=== PATIENT | female | born 1955 | race Caucasian/White ===

== ENCOUNTER 2023-05-28 11:07 | Inpatient (IN) ==
[2023-05-28 11:27] VITALS: BMI 41.1
--- NOTE | 2023-05-28 11:35 | DR.GIBLEED ---
HPI Time Seen Time Seen by Provider: 05/28/23 11:35 Primary Care Physician Primary Care Physician: Russ Cedeño Complaints Chief Complaint Doctors Comments: 68-year-old female presents for evaluation. Developed illness yesterday AM, started with nausea and vomiting. Having discomfort of the lower abdomen, across the, sharp, crampy, waxing and waning. Nothing makes it better, nothing makes worse. Vomiting continued into this a.m. Developed diarrhea last p.m. as well. Having several loose bowel movements. Has had blood with the bowel movements. Denies fever, chills, URI symptoms. Denies cough. Recently finished course of antibiotics for ear infection. Having generalized weakness. Became lightheaded dizzy in triage with standing. Denies chest pain. Called her PCP this a.m., given injection of Zofran, sent here. Having urinary incontinence this a.m. Chief Complaint:: Pt states that yesterday she had a sudden onset of generalized lower abdominal cramping associated with nausea and vomiting. This morning pt started having diarrhea and states that she noticed dark red blood in her stool. Denies any fever. Pt has had generalized weakness and shortness of breath and states that when she stands up she feel like she might pass out. Self Treatment fo Chief Complaint: Pt took Dramamine at home with no improvement of symptoms. Pt was seen at PCP office this morning and was given Zofran 4mg IM and states that this has improved her nausea some. COVID-19 Coronavirus risk:travel/contact w/high risk person: No Has patient experienced Coronavirus symptoms: No Reviewed Nurses Notes Reviewed: Yes Source History Provided: Patient Mode of Arrival Mode of Arrival: Wheelchair Timing Onset of Chief Complaint: 05/27/23 Quality Vomitus: dark blood Stools: in toilet PMH PMH Past Medical History: Yes Past Medical History: Anxiety, Arthritis and Depression Past Medical History Comment: degenerative disc disease of lumbosacral spine Past Surgical History: Yes Surgical History: Hysterectomy and Tonsillectomy Past Surgical History Comment: bilateral TKA Family History History of Family Medical Conditions: Yes Family Medical History: Diabetes Mellitus, Heart Failure and Hypertension Family Medical History Comment: dementia Social History Does patient currently use any type of tobacco product: No Have you used tobacco products in the last 12 months: No Type of Tobacco Use: None Does any household member use tobacco: No Alcohol Use: None Do you use any recreational Drugs:: No Lives With: Spouse Lives Where: Home Travel Risk Coronavirus risk:travel/contact w/high risk person: No Has patient experienced Coronavirus symptoms: No Infectious screening In the last 2 months have you had wt loss of >10#?: NO Have you had fever, night sweats or hemotysis?: No Have you traveled outside the country in the last 6 months?: No Isolation: Standard ROS Review of Systems Constitutional: Malaise and Weakness Eyes: No Symptoms Reported ENTM: No Symptoms Reported Respiratoy: No Symptoms Reported Cardiovascular: No Symptoms Reported Gastrointestinal/Abdominal: See HPI Genitourinary: Other (incontinence) Neurological: Weakness Musculoskeletal: No Symptoms Reported Integumentary: No Symptoms Reported All Other Systems: Reviewed and Negative PE Vital Signs Vitals: Vital Signs Temperature 98.1 F Pulse Rate 97 Pulse Rate 80 Pulse Rate 80 Pulse Rate 89 Pulse Rate 79 Pulse Rate 78 Pulse Rate 78 Pulse Rate 75 Pulse Rate 81 Pulse Rate 78 Pulse Rate 74 Pulse Rate 74 Pulse Rate 77 Pulse Rate 81 Pulse Rate 84 Pulse Rate 81 Pulse Rate 85 Pulse Rate 86 Pulse Rate 95 Respiratory Rate 27 Respiratory Rate 18 Respiratory Rate 18 Respiratory Rate 17 Respiratory Rate 21 Respiratory Rate 21 Respiratory Rate 22 Respiratory Rate 21 Respiratory Rate 23 Respiratory Rate 19 Respiratory Rate 19 Respiratory Rate 20 Respiratory Rate 20 Respiratory Rate 25 Respiratory Rate 22 Respiratory Rate 20 Respiratory Rate 23 Respiratory Rate 20 Blood Pressure 108/63 Blood Pressure 114/57 Blood Pressure 122/63 Blood Pressure 121/63 Blood Pressure 120/59 Blood Pressure 119/63 Blood Pressure 108/59 Blood Pressure 104/60 Blood Pressure 104/60 Blood Pressure 104/60 Blood Pressure 107/63 Blood Pressure 101/61 Blood Pressure 107/68 Blood Pressure 111/60 O2 Sat by Pulse Oximetry 98 O2 Sat by Pulse Oximetry 97 O2 Sat by Pulse Oximetry 95 O2 Sat by Pulse Oximetry 93 O2 Sat by Pulse Oximetry 95 O2 Sat by Pulse Oximetry 95 O2 Sat by Pulse Oximetry 96 O2 Sat by Pulse Oximetry 93 O2 Sat by Pulse Oximetry 94 O2 Sat by Pulse Oximetry 97 O2 Sat by Pulse Oximetry 92 O2 Sat by Pulse Oximetry 92 O2 Sat by Pulse Oximetry 96 O2 Sat by Pulse Oximetry 95 O2 Sat by Pulse Oximetry 96 O2 Sat by Pulse Oximetry 96 O2 Sat by Pulse Oximetry 97 O2 Sat by Pulse Oximetry 96 General General Appearance: Alert and In No Apparent Distress Eyes Eye exam: PERRL and EOMI ENT ENT Exam: Normal Oropharynx and Mucous Membranes Moist Neck Neck Exam: Normal Inspection and Full ROM Respiratory Respiratory Exam: Normal Lung Sounds Bilat; negative Accessory Muscle Use or Respiratory Distress Cardiovascular Cardiovascular Exam: Regular Rate, Normal Rhythm and Normal Heart Sounds Abdominal Exam Abdominal Exam: Normal Bowel Sounds, Soft and Tenderness (LUQ, no guarding or rebound) Extremities Extremities Exam: Normal Inspection and Full ROM; negative Edema Back Back Exam: Normal Inspection; negative (R) CVA Tenderness or (L) CVA Tenderness Neurologic Neurological Exam: Alert, Oriented X3 and CN II-XII Intact; negative Motor Sensory Deficit Skin Skin Exam: Warm and Dry COURSE Treatment Treatment: 60-year-old female with vomiting, abdominal pain since yesterday, now having diarrhea. Has had blood in her stools. Workup initiated. Patient given IV fluids, IV Protonix/IV Zofran. 1422 -labs show elevated white count, 17,900. She has some renal insufficiency, EGFR is 30. Lactic acid elevated at 3.8. CT of the abdomen pelvis without contrast (due to her kidney function & N/V) does not show any obvious acute abnormalities. No evidence for inflammation or bowel obstruction. 1437 -feeling weak, no active nausea or vomiting. Went to the bathroom to urinate a small amount. No bloody BMs here. roll slicing machine tender left side of the abdomen, no guarding or rebound. Recommend admission for further hydration and observation. Will cover the intestines with IV Flagyl/Levaquin. Patient given additional IV fluids, in view of her elevated lactic acid, and possible volume depletion. Differential includes diverticulitis, ischemic bowel, viral gastroenteritis. Her medical provider does not come here, will present patient to Dr. Merchant, covering for the hospital. 1450 - accepts the admission. [facility]OR Labs Reviewed Laboratory Results Reviewed?: Yes 05/28/23 11:58 05/28/23 11:58 Laboratory: WBC 17.9 X10^3/uL (3.6-10.0) H 05/28/23 11:58 RBC 6.06 X10^6/uL (3.5-5.4) H 05/28/23 11:58 Hgb 16.0 g/dL (12.0-16.0) 05/28/23 11:58 Hct 47.9 % (36.0-47.0) H 05/28/23 11:58 MCV 79.0 fL (80.0-100.0) L 05/28/23 11:58 MCH 26.5 pg (27.0-34.0) L 05/28/23 11:58 MCHC 33.5 g/dL (33.0-35.0) 05/28/23 11:58 RDW 15.4 % (11.6-16.5) 05/28/23 11:58 Plt Count 197 X10^3/uL (150.0-450.0) 05/28/23 11:58 Plt Count Comment Adequate (ADEQUATE) 05/28/23 11:58 MPV 8.3 fL (7.4-11.0) 05/28/23 11:58 Neut % (Auto) 92.6 % (42.0-75.0) H 05/28/23 11:58 Lymph % (Auto) 3.7 % (21.0-51.0) L 05/28/23 11:58 [place] % (Auto) 3.1 % (0.0-13.0) 05/28/23 11:58 Eos % (Auto) 0.5 % (0.9-2.9) L 05/28/23 11:58 Baso % (Auto) 0.1 % (0.2-1.0) L 05/28/23 11:58 Neut # (Auto) 16.6 x10^3/uL (2.2-4.8) H 05/28/23 11:58 Lymph # (Auto) 0.7 X10^3/uL (1.3-2.9) L 05/28/23 11:58 [place] # (Auto) 0.6 x10^3/uL (0.3-0.8) 05/28/23 11:58 Eos # (Auto) 0.1 x10^3/uL (0.0-0.2) 05/28/23 11:58 Baso # (Auto) 0.0 X10^3/uL (0.0-0.1) 05/28/23 11:58 Absolute Nucleated RBC 0.2 /100WBC 05/28/23 11:58 Total Counted 100 05/28/23 11:58 Neutrophils % (Manual) 85 % (39-76) H 05/28/23 11:58 Band Neutrophils % 2 % (0-10) 05/28/23 11:58 Lymphocytes % (Manual) 7 % (13-43) L 05/28/23 11:58 Monocytes % (Manual) 6 % (4-9) 05/28/23 11:58 Eosinophils % (Manual) 0 % (0-6) 05/28/23 11:58 Basophils % (Manual) 0 % (0-1) 05/28/23 11:58 Nucleated RBCs 1 05/28/23 11:58 Plt Morphology Comment Normal (NORMAL) 05/28/23 11:58 RBC Morphology Abnormal (NORMAL) A 05/28/23 11:58 Stomatocytes 1+ A 05/28/23 11:58 Sodium 136 mmol/L (136-145) 05/28/23 11:58 Corrected Sodium 137 mmol/L (136-145) 05/28/23 11:58 Potassium 3.4 mmol/L (3.5-5.1) L 05/28/23 11:58 Chloride 98 mmol/L (98-107) 05/28/23 11:58 Carbon Dioxide 25.5 mmol/L (21-32) 05/28/23 11:58 BUN 20 mg/dL (7-18) H 05/28/23 11:58 Creatinine 1.78 mg/dL (0.55-1.02) H 05/28/23 11:58 Est GFR (MDRD) Af Amer 36 (>60) L 05/28/23 11:58 Est GFR (MDRD) Non-Af 30 (>60) L 05/28/23 11:58 Glucose 156 mg/dL (65-99) H 05/28/23 11:58 Lactic Acid 3.8 mmol/L (0.4-2.0) H 05/28/23 11:58 Calcium 8.7 mg/dL (8.5-10.1) 05/28/23 11:58 Corrected Calcium 9.3 mg/dL (8.5-10.1) 05/28/23 11:58 Total Bilirubin 0.80 mg/dL (0.2-1.0) 05/28/23 11:58 AST 18 Units/L (15-37) 05/28/23 11:58 ALT 13 Units/L (12-78) 05/28/23 11:58 Alkaline Phosphatase 122 Units/L (46-116) H 05/28/23 11:58 Total Protein 7.0 g/dL (6.4-8.2) 05/28/23 11:58 Albumin 3.2 g/dL (3.4-5.0) L 05/28/23 11:58 Globulin 3.8 g/dL (2.5-4.5) 05/28/23 11:58 Albumin/Globulin Ratio 0.8 Ratio (1.1-2.1) L 05/28/23 11:58 Lipase 21 Units/L (16-77) 05/28/23 11:58 Specimen Type Random urine 05/28/23 14:19 Urine Color Dark yellow (YELLOW) 05/28/23 14:19 Urine Appearance Slightly hazy (CLEAR) 05/28/23 14:19 Urine pH 5.0 (5.0 - 8.0) 05/28/23 14:19 Ur Specific [place] 1.025 (1.000-1.030) 05/28/23 14:19 Urine Protein 3+ (NEGATIVE) 05/28/23 14:19 Urine Glucose (UA) Negative (NEGATIVE) 05/28/23 14:19 Urine Ketones 1+ (NEGATIVE) 05/28/23 14:19 Urine Blood 4+ (NEGATIVE) 05/28/23 14:19 Urine Nitrite Positive (NEGATIVE) 05/28/23 14:19 Urine Bilirubin 2+ (NEGATIVE) 05/28/23 14:19 Urine Urobilinogen 2+ (NORMAL) 05/28/23 14:19 Ur Leukocyte Esterase 2+ (NEGATIVE) 05/28/23 14:19 Elevated white count, elevated lactic acid XRAY XRAY Interpreted by: Both X-ray Results: EXAM: ABDOMEN/PELVIS W/O CON HISTORY: Abdominal pain, nausea, vomiting, diarrhea TECHNIQUE: Axial noncontrast images with coronal and sagittal reformats. Dose reduction procedures were used with mA/kv adjusted for body size. This examination is limited due to the lack of intravenous and oral contrast. The examination was performed in this manner at the sole direction of the ordering caregiver COMPARISON: None FINDINGS: The lung bases are clear. There is a hiatal hernia present. The liver, spleen, adrenal glands, and pancreas appear within normal limits to the limitations of an unenhanced examination. No opaque stones are present within the gallbladder. Kidneys are unobstructed and without stones. No ureteral calculi are identified. The appendix is not identified with absolute certainty. There are no secondary signs of appendicitis present. Calcific atherosclerotic changes present in the nondilated abdominal aorta. No enlarged intraperitoneal or retroperitoneal lymphadenopathy of significance is identified. There are no findings suggestive of enteritis, colitis, or diverticulitis. Examination of the pelvis demonstrated no evidence for pelvic masses, pelvic fluid, or pelvic lymphadenopathy. No definite bladder abnormality is identified there is severe degenerative joint disease in both hip joints right worse than left. There is some fragmentation of the right femoral head which could indicate avascular necrosis. MRI would be of further diagnostic value if clinically indicated. No lytic or blastic skeletal lesions of significance are identified. IMPRESSION: No definite acute inflammatory process identified within the abdomen or pelvis but only to the limitations of an examination performed without intravenous and without oral contrast. Hiatal hernia Severe degenerative joint disease in both hip joints right worse than left Fragmentation of the right femoral head which could be related to the severe degenerative joint disease however avascular necrosis is not entirely excluded. MRI would be of further diagnostic value if clinically indicated. THIS IS AN ELECTRONICALLY VERIFIED FINAL REPORT 05/28/2023 1:53 PM - Electronically signed by Hussein Brandon MD Opioid Opioid Risk Tool Age (Saul box if 16-45): No History of Preadolescent Sexual Abuse: No Total: 0 Total Score Risk Category: Low Risk Copyright: Jozef CABALLERO predicting aberrant behaviors Discharge Plan Diagnosis Discharge Problem: Gastroenteritis, Volume depletion, Leukocytosis Discharge Plan Patient Disposition: 09 ADMITTED INPATIENT Condition: Stable Prescriptions: No Action fluoxetine 40 mg capsule 40 mg PO QDAY oxybutynin chloride 15 mg tablet extended release 24hr 15 mg PO QDAY cetirizine [Zyrtec] 10 mg Tablet 10 mg PO DAILY Vitamin C 1,000 mg Tablet Extended Release 1,000 mg PO DAILY cyanocobalamin (vitamin B-12) 1,000 mcg Tablet 1,000 mcg PO DAILY phentermine 37.5 mg tablet 37.5 mg PO QDAY omeprazole 40 mg capsule,delayed release(DR/EC) 40 mg PO QDAY diclofenac sodium 75 mg tablet,delayed release (DR/EC) 75 mg PO BID zolpidem 5 mg tablet 5 mg PO QPM PRN progesterone micronized 100 mg capsule 100 mg PO QPM Centrum Silver Ultra Women's Tablet 1 tab PO DAILY furosemide 40 mg Tablet 40 mg PO DAILY alendronate 70 mg Tablet 70 mg PO WEEKLY diclofenac sodium 75 mg Tablet,Delayed Release (Dr/Ec) 75 mg PO DAILY zolpidem [Ambien] 5 mg Tablet 5 mg PO HS losartan-hydrochlorothiazide 100-12.5 mg Tablet 1 tab PO DAILY Health Concerns: Post Hospitalization: new medications and changes needed to prevent readmission or further decline. Pt educated and given instructions on all concerns. Plan of Treatment: Continue with present treatment and follow up plan. Pt is to keep follow up appointment as instructed and take medications as ordered. Follow ups/Referrals Follow ups/Referrals: PRANAY CEDEÑO [Primary Care Provider] - 3 days
[2023-05-28 12:07] LABS: BASOPHILS % (AUTO) 0.1 % (0.2-1.0); EOSINOPHILS # (AUTO) 0.1 x10^3/uL (0.0-0.2); EOSINOPHILS % (AUTO) 0.5 % (0.9-2.9); HEMATOCRIT 47.9 % (36.0-47.0); LYMPHOCYTES # (AUTO) 0.7 X10^3/uL (1.3-2.9); LYMPHOCYTES % (AUTO) 3.7 % (21.0-51.0); MEAN CORPUSCULAR HEMOGLOBIN 26.5 pg (27.0-34.0); MEAN CORPUSCULAR HGB CONC 33.5 g/dL (33.0-35.0); MEAN PLATELET VOLUME 8.3 fL (7.4-11.0); MONOCYTES # (AUTO) 0.6 x10^3/uL (0.3-0.8); MONOCYTES % (AUTO) 3.1 % (0.0-13.0); NEUTROPHILS # (AUTO) 16.6 x10^3/uL (2.2-4.8); NEUTROPHILS % (AUTO) 92.6 % (42.0-75.0); PLATELET COUNT 197 X10^3/uL (150.0-450.0); RED BLOOD COUNT 6.06 X10^6/uL (3.5-5.4); RED CELL DISTRIBUTION WIDTH 15.4 % (11.6-16.5); WHITE BLOOD COUNT 17.9 X10^3/uL (3.6-10.0)
[2023-05-28] MEDS: PROTONIX INJ 40 MG VIAL IVP ONE (12:07)
[2023-05-28] MEDS: NS 1,000 ML IV 1,000 ML IV ONE (12:07)
[2023-05-28] MEDS: ZOFRAN INJ 4 MG VIAL IVP ONE (12:07)
[2023-05-28 12:19] LABS: ALBUMIN 3.2 g/dL (3.4-5.0); CALCIUM 8.7 mg/dL (8.5-10.1); CARBON DIOXIDE 25.5 mmol/L (21-32); COR CA(FOR HYPOALB) 9.3 mg/dL (8.5-10.1); CREATININE 1.78 mg/dL (0.55-1.02); POTASSIUM 3.4 mmol/L (3.5-5.1)
[2023-05-28 12:27] LABS: BAND NEUTROPHILS % 2 % (0-10); BASOPHILS % (MANUAL) 0 % (0-1); PLATELET MORPHOLOGY COMMENT NORMAL (NORMAL)
[2023-05-28 12:28] LABS: STOMATOCYTES 1+
--- NOTE | 2023-05-28 13:57 | CT ---
EXAM: ABDOMEN/PELVIS W/O CON HISTORY: Abdominal pain, nausea, vomiting, diarrhea TECHNIQUE: Axial noncontrast images with coronal and sagittal reformats. Dose reduction procedures were used w ith mA/kv adjusted for body size. This examination is limited due to the lack of intravenous and ora l contrast. The examination was performed in this manner at the sole direction of the ordering careg iver COMPARISON: None FINDINGS: The lung bases are clear. There is a hiatal hernia present. The liver, spleen, adrenal glands, an d pancreas appear within normal limits to the limitations of an unenhanced examination. No opaque st ones are present within the gallbladder. Kidneys are unobstructed and without stones. No ureteral c alculi are identified. The appendix is not identified with absolute certainty. There are no seconda ry signs of appendicitis present. Calcific atherosclerotic changes present in the nondilated abdomin al aorta. No enlarged intraperitoneal or retroperitoneal lymphadenopathy of significance is identifi ed. There are no findings suggestive of enteritis, colitis, or diverticulitis. Examination of the p rajinder demonstrated no evidence for pelvic masses, pelvic fluid, or pelvic lymphadenopathy. No defini te bladder abnormality is identified there is severe degenerative joint disease in both hip joints ri ght worse than left. There is some fragmentation of the right femoral head which could indicate avas cular necrosis. MRI would be of further diagnostic value if clinically indicated. No lytic or blast ic skeletal lesions of significance are identified. IMPRESSION: No definite acute inflammatory process identified within the abdomen or pelvis but only to the limita tions of an examination performed without intravenous and without oral contrast. Hiatal hernia Severe degenerative joint disease in both hip joints right worse than left Fragmentation of the right femoral head which could be related to the severe degenerative joint disea se however avascular necrosis is not entirely excluded. MRI would be of further diagnostic value if clinically indicated. THIS IS AN ELECTRONICALLY VERIFIED FINAL REPORT 05/28/2023 1:53 PM - Electronically signed by Hussein Brandon MD
[2023-05-28 14:31] LABS: BILIRUBIN,URINE 2+ (NEGATIVE); BLOOD/HEMOGLOBIN,URINE 4+ (NEGATIVE); GLUCOSE, URINE NEGATIVE (NEGATIVE); KETONES,URINE 1+ (NEGATIVE); LEUKOCYTE ESTERASE ,URINE 2+ (NEGATIVE); NITRITES,URINE POSITIVE (NEGATIVE); PROTEIN,URINE 3+ (NEGATIVE); UROBILINOGEN,URINE 2+ (NORMAL)
[2023-05-28 14:37] LABS: COLOR,URINE DARK YELLOW (YELLOW)
[2023-05-28 14:38] LABS: APPEARANCE,URINE SLIGHTLY HAZY (CLEAR)
[2023-05-28] MEDS: LEVAQUIN PREMIX IV 750 MG 750 MG/150 ML BAG IV SCH (14:39)
[2023-05-28] MEDS: FLAGYL IV PREMIX 500 MG BAG 500 MG/100 ML BAG IV ONE (14:39)
[2023-05-28] MEDS: NS 500 ML IV 500 ML IV ONE (14:43)
[2023-05-28] MEDS ORDERED: CONSULT PHARMACY - POTASSIUM & MAGNESIUM XX SCH (16:15)
[2023-05-28] MEDS: LR 1,000 ML IV 1,000 ML IV SCH (17:30)
[2023-05-28] MEDS: FLAGYL IV PREMIX 500 MG BAG 500 MG/100 ML BAG IV SCH (21:08)
[2023-05-28] MEDS: AMBIEN PO SCH (21:09)
[2023-05-28] MEDS: KLOR-CON PO SCH (21:51)
[2023-05-29] MEDS: ZOFRAN INJ 4 MG VIAL IVP PRN (02:34)
[2023-05-29 06:11] LABS: BASOPHILS % (AUTO) 0.3 % (0.2-1.0); EOSINOPHILS # (AUTO) 0.1 x10^3/uL (0.0-0.2); EOSINOPHILS % (AUTO) 0.5 % (0.9-2.9); HEMATOCRIT 40.1 % (36.0-47.0); LYMPHOCYTES # (AUTO) 0.9 X10^3/uL (1.3-2.9); LYMPHOCYTES % (AUTO) 8.9 % (21.0-51.0); MEAN CORPUSCULAR HEMOGLOBIN 26.5 pg (27.0-34.0); MEAN CORPUSCULAR HGB CONC 33.4 g/dL (33.0-35.0); MEAN CORPUSCULAR VOLUME 79.2 fL (80.0-100.0); MEAN PLATELET VOLUME 8.2 fL (7.4-11.0); MONOCYTES # (AUTO) 0.4 x10^3/uL (0.3-0.8); MONOCYTES % (AUTO) 3.8 % (0.0-13.0); NEUTROPHILS # (AUTO) 8.9 x10^3/uL (2.2-4.8); NEUTROPHILS % (AUTO) 86.5 % (42.0-75.0); PLATELET COUNT 139 X10^3/uL (150.0-450.0); RED BLOOD COUNT 5.06 X10^6/uL (3.5-5.4); RED CELL DISTRIBUTION WIDTH 15.5 % (11.6-16.5); WHITE BLOOD COUNT 10.2 X10^3/uL (3.6-10.0)
[2023-05-29 06:27] LABS: HEMOGLOBIN 13.4 g/dL (12.0-16.0)
[2023-05-29 06:30] LABS: ALANINE AMINOTRANSFERASE 9 Units/L (12-78); ALBUMIN 2.5 g/dL (3.4-5.0); ALKALINE PHOSPHATASE 100 Units/L (46-116); ASPARTATE AMINO TRANSFERASE 17 Units/L (15-37); BLOOD UREA NITROGEN 25 mg/dL (7-18); CALCIUM 7.8 mg/dL (8.5-10.1); CARBON DIOXIDE 26.2 mmol/L (21-32); CHLORIDE 97 mmol/L (98-107); CREATININE 1.46 mg/dL (0.55-1.02); GLUCOSE 110 mg/dL (65-99); POTASSIUM 3.3 mmol/L (3.5-5.1); SODIUM 132 mmol/L (136-145); TOTAL PROTEIN 5.9 g/dL (6.4-8.2); eGFR NON BLACK RACES 38 (>60)
[2023-05-29] MEDS: FLAGYL IV PREMIX 500 MG BAG 500 MG/100 ML BAG IV ONE (07:53)
[2023-05-29] MEDS: NS 1,000 ML IV 1,000 ML ONE (07:53)
[2023-05-29] MEDS: ZOFRAN INJ 4 MG VIAL ONE (07:53)
[2023-05-29] MEDS: PROTONIX INJ 40 MG VIAL ONE (07:53)
[2023-05-29] MEDS: LEVAQUIN PREMIX IV 750 MG 750 MG/150 ML BAG IV ONE (07:54)
[2023-05-29] MEDS: KLOR-CON ONE (07:54)
[2023-05-29] MEDS: NS 500 ML IV 500 ML IV ONE (07:54)
[2023-05-29] MEDS ORDERED: LEVAQUIN PREMIX IV 750 MG 750 MG/150 ML BAG IV SCH (09:00)
[2023-05-29 09:03] LABS: BILIRUBIN,URINE NEGATIVE (NEGATIVE); BLOOD/HEMOGLOBIN,URINE 5+ (NEGATIVE); GLUCOSE, URINE NEGATIVE (NEGATIVE); KETONES,URINE NEGATIVE (NEGATIVE); LEUKOCYTE ESTERASE ,URINE 3+ (NEGATIVE); NITRITES,URINE NEGATIVE (NEGATIVE); PROTEIN,URINE 3+ (NEGATIVE); UROBILINOGEN,URINE NORMAL (NORMAL)
[2023-05-29 09:12] LABS: APPEARANCE,URINE HAZY (CLEAR); BACTERIA,URINE 3+ /HPF (NEGATIVE); COLOR,URINE DARK YELLOW (YELLOW); RBC,URINE TNTC /HPF (0-3); SQUAMOUS EPITHELIAL CELL,UR RARE /HPF (NEGATIVE)
[2023-05-29 09:13] LABS: HYALINE CASTS, URINE FEW /LPF (NEGATIVE)
[2023-05-29] MEDS: PROTONIX INJ 40 MG VIAL IVP SCH (09:30)
[2023-05-29] MEDS: ZyrTEC TAB 10 MG PO SCH (09:31)
[2023-05-29] MEDS: PROzac PO SCH (09:31)
[2023-05-29] MEDS: HYDROCHLOROTHIAZIDE 12.5 MG CAP PO SCH (09:31)
[2023-05-29] MEDS: COZAAR PO SCH (09:31)
[2023-05-29] MEDS: OXYBUTYNIN CHLORIDE ER PO SCH (09:32)
--- NOTE | 2023-05-29 09:37 | DR.H&P ---
H&P History & Physical for Day of: H&P Date: 05/28/23 Chief Complaint Chief Complaint: Bloody diarrhea/presyncope Allergies Allergies Allergy/AdvReac Type Severity Reaction Status Date / Time codeine Allergy Verified 05/28/23 11:46 meperidine [From Demerol] Allergy Verified 05/28/23 11:46 morphine Allergy Verified 05/28/23 11:46 Penicillins Allergy Verified 05/28/23 11:46 History of Present Illness History of Present Illness: This is a 68-year-old white female who presented to the [facility] emergency department yesterday with blood-tinged diarrhea. She states after she stands up she feels she is in a pass out and is having left lower quadrant pain. She called her primary care for provider and they told her they thought it could be diverticulitis. This afternoon the patient is complaining of bilateral lower quadrant abdominal pain. She reports that she is feeling okay long she is lying down but when she stands up she feels like she is still in a pass out. She has had some nausea and vomiting as well, but denies hematemesis. She has no epigastric pain at this time. She has a past medical history significant for depression, anxiety, and hypertension. She denies having any previous abdominal surgery. Past Medical History Past Medical History: Anxiety, Arthritis and Depression Past Surgical History Surgical History: , Hysterectomy, Joint Replacement and Tonsillectomy Family History Family Medical History: Diabetes Mellitus, Heart Failure and Hypertension Social History Does patient currently use any type of tobacco product: No Have you used tobacco products in the last 12 months: No Type of Tobacco Use: None Does any household member use tobacco: No Alcohol Use: None Drug Use: None Medications Home Medications: Home Medications Medication Instructions Recorded Confirmed Type alendronate 70 mg tablet 70 mg PO WEEKLY 05/28/23 05/28/23 History ascorbic acid (vitamin C) 1,000 mg 1,000 mg PO DAILY 05/28/23 05/28/23 History tablet,extended release (Vitamin C ER) cetirizine 10 mg tablet (Zyrtec) 10 mg PO DAILY 05/28/23 05/28/23 History cyanocobalamin (vitamin B-12) 1,000 mcg PO DAILY 05/28/23 05/28/23 History 1,000 mcg tablet diclofenac sodium 75 mg 75 mg PO BID 05/28/23 05/28/23 History tablet,delayed release diclofenac sodium 75 mg 75 mg PO DAILY 05/28/23 05/28/23 History tablet,delayed release fluoxetine 40 mg capsule 40 mg PO QDAY 05/28/23 05/28/23 History furosemide 40 mg tablet 40 mg PO DAILY 05/28/23 05/28/23 History losartan 100 1 tab PO DAILY 05/28/23 05/28/23 History mg-hydrochlorothiazide 12.5 mg tablet [place]-wkwe-lutein tablet 1 tab PO DAILY 05/28/23 05/28/23 History omeprazole 40 mg capsule,delayed 40 mg PO QDAY 05/28/23 05/28/23 History release oxybutynin chloride 15 mg 15 mg PO QDAY 05/28/23 05/28/23 History tablet,extended release 24 hr phentermine 37.5 mg tablet 37.5 mg PO QDAY 05/28/23 05/28/23 History progesterone micronized 100 mg 100 mg PO QPM 05/28/23 05/28/23 History capsule zolpidem 5 mg tablet 5 mg PO QPM PRN 05/28/23 05/28/23 History zolpidem 5 mg tablet (Ambien) 5 mg PO HS 05/28/23 05/28/23 History Labs 05/29/23 05:55 05/29/23 05:55 Labs: Laboratory WBC 10.2 X10^3/uL (3.6-10.0) H 05/29/23 05:55 RBC 5.06 X10^6/uL (3.5-5.4) 05/29/23 05:55 Hgb 13.4 g/dL (12.0-16.0) D 05/29/23 05:55 Hct 40.1 % (36.0-47.0) 05/29/23 05:55 MCV 79.2 fL (80.0-100.0) L 05/29/23 05:55 MCH 26.5 pg (27.0-34.0) L 05/29/23 05:55 MCHC 33.4 g/dL (33.0-35.0) 05/29/23 05:55 RDW 15.5 % (11.6-16.5) 05/29/23 05:55 Plt Count 139 X10^3/uL (150.0-450.0) L 05/29/23 05:55 Plt Count Comment Adequate (ADEQUATE) 05/28/23 11:58 MPV 8.2 fL (7.4-11.0) 05/29/23 05:55 Neut % (Auto) 86.5 % (42.0-75.0) H 05/29/23 05:55 Lymph % (Auto) 8.9 % (21.0-51.0) L 05/29/23 05:55 [place] % (Auto) 3.8 % (0.0-13.0) 05/29/23 05:55 Eos % (Auto) 0.5 % (0.9-2.9) L 05/29/23 05:55 Baso % (Auto) 0.3 % (0.2-1.0) 05/29/23 05:55 Neut # (Auto) 8.9 x10^3/uL (2.2-4.8) H 05/29/23 05:55 Lymph # (Auto) 0.9 X10^3/uL (1.3-2.9) L 05/29/23 05:55 [place] # (Auto) 0.4 x10^3/uL (0.3-0.8) 05/29/23 05:55 Eos # (Auto) 0.1 x10^3/uL (0.0-0.2) 05/29/23 05:55 Baso # (Auto) 0.0 X10^3/uL (0.0-0.1) 05/29/23 05:55 Absolute Nucleated RBC 0.1 /100WBC 05/29/23 05:55 Total Counted 100 05/28/23 11:58 Neutrophils % (Manual) 85 % (39-76) H 05/28/23 11:58 Band Neutrophils % 2 % (0-10) 05/28/23 11:58 Lymphocytes % (Manual) 7 % (13-43) L 05/28/23 11:58 Monocytes % (Manual) 6 % (4-9) 05/28/23 11:58 Eosinophils % (Manual) 0 % (0-6) 05/28/23 11:58 Basophils % (Manual) 0 % (0-1) 05/28/23 11:58 Nucleated RBCs 1 05/28/23 11:58 Plt Morphology Comment Normal (NORMAL) 05/28/23 11:58 RBC Morphology Abnormal (NORMAL) A 05/28/23 11:58 Stomatocytes 1+ A 05/28/23 11:58 Sodium 132 mmol/L (136-145) L 05/29/23 05:55 Corrected Sodium TNP 05/29/23 05:55 Potassium 3.3 mmol/L (3.5-5.1) L 05/29/23 05:55 Chloride 97 mmol/L (98-107) L 05/29/23 05:55 Carbon Dioxide 26.2 mmol/L (21-32) 05/29/23 05:55 BUN 25 mg/dL (7-18) H 05/29/23 05:55 Creatinine 1.46 mg/dL (0.55-1.02) H 05/29/23 05:55 Est GFR (MDRD) Af Amer 46 (>60) L 05/29/23 05:55 Est GFR (MDRD) Non-Af 38 (>60) L 05/29/23 05:55 Glucose 110 mg/dL (65-99) H 05/29/23 05:55 POC Glucose (mg/dL) 128 mg/dL (65-99) H 05/28/23 17:26 Lactic Acid 1.0 mmol/L (0.4-2.0) 05/29/23 07:03 Calcium 7.8 mg/dL (8.5-10.1) L 05/29/23 05:55 Corrected Calcium 9.0 mg/dL (8.5-10.1) 05/29/23 05:55 Magnesium 2.1 mg/dL (2.0-2.9) 05/28/23 11:58 Total Bilirubin 0.70 mg/dL (0.2-1.0) 05/29/23 05:55 AST 17 Units/L (15-37) 05/29/23 05:55 ALT 9 Units/L (12-78) L 05/29/23 05:55 Alkaline Phosphatase 100 Units/L (46-116) 05/29/23 05:55 Total Protein 5.9 g/dL (6.4-8.2) L 05/29/23 05:55 Albumin 2.5 g/dL (3.4-5.0) L 05/29/23 05:55 Globulin 3.4 g/dL (2.5-4.5) 05/29/23 05:55 Albumin/Globulin Ratio 0.7 Ratio (1.1-2.1) L 05/29/23 05:55 Lipase 21 Units/L (16-77) 05/28/23 11:58 Specimen Type Clean catch urine 05/29/23 08:40 Urine Color Dark yellow (YELLOW) 05/29/23 08:40 Urine Appearance Hazy (CLEAR) 05/29/23 08:40 Urine pH 5.0 (5.0 - 8.0) 05/29/23 08:40 Ur Specific [place] 1.025 (1.000-1.030) 05/29/23 08:40 Urine Protein 3+ (NEGATIVE) 05/29/23 08:40 Urine Glucose (UA) Negative (NEGATIVE) 05/29/23 08:40 Urine Ketones Negative (NEGATIVE) 05/29/23 08:40 Urine Blood 5+ (NEGATIVE) 05/29/23 08:40 Urine Nitrite Negative (NEGATIVE) 05/29/23 08:40 Urine Bilirubin Negative (NEGATIVE) 05/29/23 08:40 Urine Urobilinogen Normal (NORMAL) 05/29/23 08:40 Ur Leukocyte Esterase 3+ (NEGATIVE) 05/29/23 08:40 Urine RBC Tntc /HPF (0-3) A 05/29/23 08:40 Urine WBC Tntc /HPF (0-5) A 05/29/23 08:40 Ur Squamous Epith Cells Rare /HPF (NEGATIVE) 05/29/23 08:40 Urine Bacteria 3+ /HPF (NEGATIVE) 05/29/23 08:40 Hyaline Casts Few /LPF (NEGATIVE) 05/29/23 08:40 Urine Mucus Few /HPF (NEGATIVE) 05/29/23 08:40 Ur Culture Indicated? Yes/culture set up 05/29/23 08:40 Stl Occult Blood (IFOB) Positive (NEGATIVE) A 05/29/23 08:40 Review of Systems Constitutional: No Symptoms Reported and Weakness Eyes: No Symptoms Reported ENT: No Symptoms Reported Respiratory: No Symptoms Reported Cardiovascular: No Symptoms Reported Gastrointestinal: Nausea and Diarrhea; denies Vomiting Genitourinary: No Symptoms Reported Musculoskeletal: No Symptoms Reported Skin: No Symptoms Reported Neurological: No Symptoms Reported Physical Exam Vital Signs: Vital Signs Temperature 98.1 F Pulse Rate [Left Apical] 77 Respiratory Rate 20 Blood Pressure [Left Arm] 118/56 O2 Sat by Pulse Oximetry 95 Oriented: Normal, Time, Person and Place Eyes: Normal Ear: Normal Nose: Normal Throat: Normal Respiratory: Clear Throughout Cardiovascular: Normal Auscultation: Bowel Sounds: Normal Palpation: Normal Tenderness: RLQ and LLQ Skin: Normal Musculoskeletal: Normal Psychiatric: Normal Mood Description: Calm Affect: Normal Speech Pattern: Clear and Appropriate Assessment/Plan (1) Left lower quadrant pain: Status: Acute Plan: Continue IV Flagyl and Levaquin at this time. Patient may have underlying diverticulitis. (2) Bloody diarrhea: Status: Acute Plan: Continue IV Levaquin and Flagyl. We will check a Hemoccult to see if patient is actually positive for blood in (3) Dehydration: Status: Acute Plan: IV hydration. (4) Hypokalemia: Status: Acute Plan: Testing replacement protocol (5) Vomiting: Qualifiers: Nausea presence: with nausea Vomiting type: bilious vomiting Qualified Code(s): R11.14 - Bilious vomiting Status: Acute Plan: Zofran for nausea and vomiting. (6) Gastroenteritis: Status: Acute Plan: Continue IV hydration along with antiemetics and IV antibiotics. Review H&P Reviewed: Yes Patient was examined?: Yes
[2023-05-30 07:19] LABS: BASOPHILS % (AUTO) 0.4 % (0.2-1.0); EOSINOPHILS % (AUTO) 0.2 % (0.9-2.9); HEMOGLOBIN 13.2 g/dL (12.0-16.0); LYMPHOCYTES % (AUTO) 11.7 % (21.0-51.0); MEAN CORPUSCULAR HEMOGLOBIN 26.6 pg (27.0-34.0); MEAN CORPUSCULAR HGB CONC 33.9 g/dL (33.0-35.0); MEAN CORPUSCULAR VOLUME 78.5 fL (80.0-100.0); MEAN PLATELET VOLUME 8.7 fL (7.4-11.0); MONOCYTES # (AUTO) 0.4 x10^3/uL (0.3-0.8); MONOCYTES % (AUTO) 4.5 % (0.0-13.0); NEUTROPHILS # (AUTO) 7.2 x10^3/uL (2.2-4.8); NEUTROPHILS % (AUTO) 83.2 % (42.0-75.0); PLATELET COUNT 146 X10^3/uL (150.0-450.0); RED BLOOD COUNT 4.97 X10^6/uL (3.5-5.4); RED CELL DISTRIBUTION WIDTH 15.5 % (11.6-16.5); WHITE BLOOD COUNT 8.7 X10^3/uL (3.6-10.0)
[2023-05-30 07:35] LABS: ALANINE AMINOTRANSFERASE 11 Units/L (12-78); ALBUMIN 2.6 g/dL (3.4-5.0); ALKALINE PHOSPHATASE 101 Units/L (46-116); ASPARTATE AMINO TRANSFERASE 17 Units/L (15-37); BLOOD UREA NITROGEN 12 mg/dL (7-18); CALCIUM 7.9 mg/dL (8.5-10.1); CARBON DIOXIDE 23.8 mmol/L (21-32); CHLORIDE 93 mmol/L (98-107); COR NA(FOR HYPERGLY) 128 mmol/L (136-145); CREATININE 0.75 mg/dL (0.55-1.02); GLUCOSE 119 mg/dL (65-99); MAGNESIUM 1.8 mg/dL (2.0-2.9); SODIUM 128 mmol/L (136-145); TOTAL PROTEIN 6.1 g/dL (6.4-8.2); eGFR NON BLACK RACES > 60 (>60)
[2023-05-30 07:38] LABS: POTASSIUM 2.9 mmol/L (3.5-5.1)
[2023-05-30] MEDS ORDERED: CONSULT PHARMACY - POTASSIUM & MAGNESIUM XX SCH ×2 (08:00)
--- NOTE | 2023-05-30 08:45 | PCM.PROG ---
Progress Note Progress Note for Day of Date of Exam: 05/29/23 Subjective Subjective: Patient has not had no further nausea vomiting or diarrhea. She is not having significant lower abdominal pain this morning. Still somewhat weak not eating a lot. We will continue her on IV Flagyl and Levaquin. Hopefully she can be discharged home tomorrow. I suspect the patient has had resolving diverticulitis. Past Medical Family Social History Allergies: Allergies codeine Allergy (Verified 05/28/23 11:46) meperidine [From Demerol] Allergy (Verified 05/28/23 11:46) morphine Allergy (Verified 05/28/23 11:46) Penicillins Allergy (Verified 05/28/23 11:46) Vital Signs and I&O's Vital Signs: Vital Signs Temperature 98.2 F Pulse Rate [Left Apical] 79 Respiratory Rate 18 Blood Pressure [Left Arm] 108/64 O2 Sat by Pulse Oximetry 96 Intake and Output: Intake & Output 05/27/23 05/28/23 05/29/23 05/30/23 11:59 11:59 11:59 11:59 Intake Total 1234 / 1234 3670 / 3670 Balance 1234 / 1234 3670 / 3670 Physical Exam Oriented: Normal, Time, Person and Place Eyes: Normal Ear: Normal Nose: Normal Throat: Normal Cardiovascular: Normal Auscultation: Bowel Sounds: Normal Tenderness: RLQ and LLQ Skin: Normal Musculoskeletal: Normal Psychiatric: Normal Mood Description: Calm Affect: Normal Speech Pattern: Clear and Appropriate Laboratory and Diagnostics 05/30/23 06:17 05/30/23 06:17 Labs: 05/28/23 15:18 Blood Blood Culture - Preliminary 05/28/23 15:13 Blood Blood Culture - Preliminary 05/29/23 08:40 Urine,Clean Catch Urine Culture - Preliminary Laboratory WBC 8.7 X10^3/uL (3.6-10.0) 05/30/23 06:17 RBC 4.97 X10^6/uL (3.5-5.4) 05/30/23 06:17 Hgb 13.2 g/dL (12.0-16.0) 05/30/23 06:17 Hct 39.0 % (36.0-47.0) 05/30/23 06:17 MCV 78.5 fL (80.0-100.0) L 05/30/23 06:17 MCH 26.6 pg (27.0-34.0) L 05/30/23 06:17 MCHC 33.9 g/dL (33.0-35.0) 05/30/23 06:17 RDW 15.5 % (11.6-16.5) 05/30/23 06:17 Plt Count 146 X10^3/uL (150.0-450.0) L 05/30/23 06:17 Plt Count Comment Adequate (ADEQUATE) 05/28/23 11:58 MPV 8.7 fL (7.4-11.0) 05/30/23 06:17 Neut % (Auto) 83.2 % (42.0-75.0) H 05/30/23 06:17 Lymph % (Auto) 11.7 % (21.0-51.0) L 05/30/23 06:17 [place] % (Auto) 4.5 % (0.0-13.0) 05/30/23 06:17 Eos % (Auto) 0.2 % (0.9-2.9) L 05/30/23 06:17 Baso % (Auto) 0.4 % (0.2-1.0) 05/30/23 06:17 Neut # (Auto) 7.2 x10^3/uL (2.2-4.8) H 05/30/23 06:17 Lymph # (Auto) 1.0 X10^3/uL (1.3-2.9) L 05/30/23 06:17 [place] # (Auto) 0.4 x10^3/uL (0.3-0.8) 05/30/23 06:17 Eos # (Auto) 0.0 x10^3/uL (0.0-0.2) 05/30/23 06:17 Baso # (Auto) 0.0 X10^3/uL (0.0-0.1) 05/30/23 06:17 Absolute Nucleated RBC 0.1 /100WBC 05/30/23 06:17 Total Counted 100 05/28/23 11:58 Neutrophils % (Manual) 85 % (39-76) H 05/28/23 11:58 Band Neutrophils % 2 % (0-10) 05/28/23 11:58 Lymphocytes % (Manual) 7 % (13-43) L 05/28/23 11:58 Monocytes % (Manual) 6 % (4-9) 05/28/23 11:58 Eosinophils % (Manual) 0 % (0-6) 05/28/23 11:58 Basophils % (Manual) 0 % (0-1) 05/28/23 11:58 Nucleated RBCs 1 05/28/23 11:58 Plt Morphology Comment Normal (NORMAL) 05/28/23 11:58 RBC Morphology Abnormal (NORMAL) A 05/28/23 11:58 Stomatocytes 1+ A 05/28/23 11:58 Sodium 128 mmol/L (136-145) L 05/30/23 06:17 Corrected Sodium 128 mmol/L (136-145) L 05/30/23 06:17 Potassium 2.9 mmol/L (3.5-5.1) L* 05/30/23 06:17 Chloride 93 mmol/L (98-107) L 05/30/23 06:17 Carbon Dioxide 23.8 mmol/L (21-32) 05/30/23 06:17 BUN 12 mg/dL (7-18) 05/30/23 06:17 Creatinine 0.75 mg/dL (0.55-1.02) 05/30/23 06:17 Est GFR (MDRD) Af Amer > 60 (>60) 05/30/23 06:17 Est GFR (MDRD) Non-Af > 60 (>60) 05/30/23 06:17 Glucose 119 mg/dL (65-99) H 05/30/23 06:17 POC Glucose (mg/dL) 101 mg/dL (65-99) H 05/29/23 16:29 Lactic Acid 1.0 mmol/L (0.4-2.0) 05/29/23 07:03 Calcium 7.9 mg/dL (8.5-10.1) L 05/30/23 06:17 Corrected Calcium 9.0 mg/dL (8.5-10.1) 05/30/23 06:17 Magnesium 1.8 mg/dL (2.0-2.9) L 05/30/23 06:17 Total Bilirubin 0.60 mg/dL (0.2-1.0) 05/30/23 06:17 AST 17 Units/L (15-37) 05/30/23 06:17 ALT 11 Units/L (12-78) L 05/30/23 06:17 Alkaline Phosphatase 101 Units/L (46-116) 05/30/23 06:17 Total Protein 6.1 g/dL (6.4-8.2) L 05/30/23 06:17 Albumin 2.6 g/dL (3.4-5.0) L 05/30/23 06:17 Globulin 3.5 g/dL (2.5-4.5) 05/30/23 06:17 Albumin/Globulin Ratio 0.7 Ratio (1.1-2.1) L 05/30/23 06:17 Lipase 21 Units/L (16-77) 05/28/23 11:58 Specimen Type Clean catch urine 05/29/23 08:40 Urine Color Dark yellow (YELLOW) 05/29/23 08:40 Urine Appearance Hazy (CLEAR) 05/29/23 08:40 Urine pH 5.0 (5.0 - 8.0) 05/29/23 08:40 Ur Specific [place] 1.025 (1.000-1.030) 05/29/23 08:40 Urine Protein 3+ (NEGATIVE) 05/29/23 08:40 Urine Glucose (UA) Negative (NEGATIVE) 05/29/23 08:40 Urine Ketones Negative (NEGATIVE) 05/29/23 08:40 Urine Blood 5+ (NEGATIVE) 05/29/23 08:40 Urine Nitrite Negative (NEGATIVE) 05/29/23 08:40 Urine Bilirubin Negative (NEGATIVE) 05/29/23 08:40 Urine Urobilinogen Normal (NORMAL) 05/29/23 08:40 Ur Leukocyte Esterase 3+ (NEGATIVE) 05/29/23 08:40 Urine RBC Tntc /HPF (0-3) A 05/29/23 08:40 Urine WBC Tntc /HPF (0-5) A 05/29/23 08:40 Ur Squamous Epith Cells Rare /HPF (NEGATIVE) 05/29/23 08:40 Urine Bacteria 3+ /HPF (NEGATIVE) 05/29/23 08:40 Hyaline Casts Few /LPF (NEGATIVE) 05/29/23 08:40 Urine Mucus Few /HPF (NEGATIVE) 05/29/23 08:40 Ur Culture Indicated? Yes/culture set up 05/29/23 08:40 Stl Occult Blood (IFOB) Positive (NEGATIVE) A 05/29/23 08:40 Plan (1) Left lower quadrant pain: Status: Acute Plan: Continue IV Flagyl and Levaquin at this time. Patient may have underlying diverticulitis. (2) Bloody diarrhea: Status: Acute Plan: Continue IV Levaquin and Flagyl. We will check a Hemoccult to see if patient is actually positive for blood in (3) Dehydration: Status: Acute Plan: IV hydration. (4) Hypokalemia: Status: Acute Plan: Testing replacement protocol (5) Vomiting: Status: Acute Qualifiers: Nausea presence: with nausea Vomiting type: bilious vomiting Qualified Code(s): R11.14 - Bilious vomiting Plan: Zofran for nausea and vomiting. (6) Gastroenteritis: Status: Acute Plan: Continue IV hydration along with antiemetics and IV antibiotics.
[2023-05-30 08:46] VITALS: RESP 17
[2023-05-30] MEDS: NS + KCL 20 MEQ/L 1,000 ML with MAGNESIUM SULFATE 50% INJ VIAL 1 G IV SCH (09:18)
[2023-05-30 12:11] VITALS: BP 119/87; PULSE 79; TEMP 97.7; O2SAT 97
== END 2023-05-30 13:10 | disposition home or self-care (01) | DRG 392 ==
LOC: SUPCPDRO → ER 11:07 → MED/SURG 15:40
PROVIDERS: ADMIT Family Medicine; ATTEND Family Medicine

== ENCOUNTER 2025-01-18 14:33 | Inpatient (IN) ==
[2025-01-18] MEDS ORDERED: NS 1,000 ML IV 1,000 ML ONE (15:08)
[2025-01-18] MEDS: NS 1,000 ML IV 1,000 ML IV ONE ×2 (15:11→16:21)
--- NOTE | 2025-01-18 15:13 | DR.DIARMA ---
HPI Time seen Time Seen by Provider: 01/18/25 15:12 PCP Primary Care Physician: Naseem Complaint Chief Complaint Doctor Comments: 70-year-old female presents to the ER with her via EMS the patient had been complaining of vomiting and diarrhea for about the last 10 days stating that her diarrhea has just been profuse and watery that she had many incontinent episodes. She states that she really had no appetite and was very nauseous over the past 10 days. The patient states nobody else at home has been sick she denies having any fever but she said she feels very weak and she her hands and feet are slightly cyanotic, very cold to touch but she had good range of motion. The patient said that she has had no trauma. On arrival she had dried light brown liquid stool on her torso and down her legs. Chief Complaint:: Pt c/o diarrhea, vomiting, tired and weak x10 days ago; pt states "I just don't feel good". states diarrhea is watery and pt is having incont episodes. Pt states she was having lower abdominal pain on Thursday when sx started, but currently denies any pain. Pt states she has not taken her BP medication today. COVID-19 Coronavirus risk:travel/contact w/high risk person: No Has patient experienced Coronavirus symptoms: Yes Coronavirus symptoms experienced: Shortness of Breath Source History Provided: Patient Mode of Arrival Mode of Arrival: Wheelchair Timing Onset of Chief Complaint: 01/08/25 PMH PMH Past Medical History: Yes Past Medical History: Anxiety, Arthritis, Depression and Hypertension Past Surgical History: Yes Surgical History: , Hysterectomy, Joint Replacement and Tonsillectomy Family History History of Family Medical Conditions: Yes Family Medical History: Diabetes Mellitus, Heart Failure and Hypertension Social History Does patient currently use any type of tobacco product: No Have you used tobacco products in the last 12 months: No Type of Tobacco Use: None Does any household member use tobacco: No Alcohol Use: None Do you use any recreational Drugs:: No Lives With: Spouse Lives Where: Home Travel Risk Coronavirus risk:travel/contact w/high risk person: No Has patient experienced Coronavirus symptoms: Yes Coronavirus symptoms experienced: Shortness of Breath Infectious screening In the last 2 months have you had wt loss of >10#?: NO Have you had fever, night sweats or hemotysis?: No Have you traveled outside the country in the last 6 months?: No Isolation: Contact ROS Review of Systems Constitutional: See HPI, Weakness, Fatigue and Loss of Appetite Cardiovascular: See HPI and Cyanosis Gastrointestinal/Abdominal: Abdominal Pain, Diarrhea, Nausea and Vomiting Genitourinary: negative Pain or Bleeding Neurological: Weakness; negative Seizure or Dizziness Musculoskeletal: Other (Cyanosis of hands and feet) Integumentary: Lesions and Bruises Psychiatric: negative Depression, Hallucinations or Suicidal All Other Systems: Reviewed and Negative PE Vital Signs Vitals: Vital Signs Pulse Rate 85 Pulse Rate 82 Pulse Rate 81 Pulse Rate 80 Pulse Rate 81 Pulse Rate 80 Pulse Rate 81 Pulse Rate 80 Pulse Rate 83 Pulse Rate 80 Pulse Rate 83 Pulse Rate 85 Pulse Rate 83 Pulse Rate 85 Pulse Rate 85 Pulse Rate 83 Pulse Rate 83 Pulse Rate 80 Pulse Rate 80 Pulse Rate 81 Pulse Rate 83 Pulse Rate 81 Pulse Rate 81 Pulse Rate 76 Pulse Rate 75 Pulse Rate 76 Pulse Rate 75 Pulse Rate 74 Pulse Rate 75 Pulse Rate 75 Pulse Rate 75 Pulse Rate 75 Pulse Rate 75 Pulse Rate 76 Pulse Rate 79 Respiratory Rate 25 Respiratory Rate 22 Respiratory Rate 21 Respiratory Rate 22 Respiratory Rate 21 Respiratory Rate 18 Respiratory Rate 22 Respiratory Rate 18 Respiratory Rate 20 Respiratory Rate 21 Respiratory Rate 20 Respiratory Rate 21 Respiratory Rate 22 Respiratory Rate 18 Respiratory Rate 23 Respiratory Rate 23 Respiratory Rate 18 Respiratory Rate 21 Respiratory Rate 17 Respiratory Rate 21 Respiratory Rate 21 Respiratory Rate 21 Respiratory Rate 22 Respiratory Rate 20 Respiratory Rate 21 Respiratory Rate 20 Respiratory Rate 22 Respiratory Rate 19 Respiratory Rate 19 Respiratory Rate 19 Respiratory Rate 17 Respiratory Rate 21 Respiratory Rate 16 Blood Pressure 94/52 Blood Pressure 106/75 Blood Pressure 108/57 Blood Pressure 113/59 Blood Pressure 96/51 Blood Pressure 84/54 Blood Pressure 100/55 Blood Pressure 106/59 Blood Pressure 102/71 Blood Pressure 114/64 Blood Pressure 120/57 O2 Sat by Pulse Oximetry 98 O2 Sat by Pulse Oximetry 97 O2 Sat by Pulse Oximetry 99 O2 Sat by Pulse Oximetry 97 O2 Sat by Pulse Oximetry 98 O2 Sat by Pulse Oximetry 99 O2 Sat by Pulse Oximetry 99 O2 Sat by Pulse Oximetry 96 O2 Sat by Pulse Oximetry 90 O2 Sat by Pulse Oximetry 99 O2 Sat by Pulse Oximetry 95 O2 Sat by Pulse Oximetry 94 O2 Sat by Pulse Oximetry 98 O2 Sat by Pulse Oximetry 95 O2 Sat by Pulse Oximetry 98 O2 Sat by Pulse Oximetry 91 O2 Sat by Pulse Oximetry 97 O2 Sat by Pulse Oximetry 99 O2 Sat by Pulse Oximetry 96 O2 Sat by Pulse Oximetry 96 O2 Sat by Pulse Oximetry 96 O2 Sat by Pulse Oximetry 96 O2 Sat by Pulse Oximetry 100 O2 Sat by Pulse Oximetry 99 O2 Sat by Pulse Oximetry 100 O2 Sat by Pulse Oximetry 98 O2 Sat by Pulse Oximetry 97 O2 Sat by Pulse Oximetry 100 General General Appearance: Other (Awake states that she just has about awful for the past 10 days her speech is coherent) Head Head Exam: Normal Inspection and Atraumatic Eyes Eye exam: PERRL and EOMI; negative Scleral Icterus, Conjunctival Injection or Periorbital Swelling ENT ENT Exam: Mucous Membranes Dry Neck Neck Exam: Trachea Midline; negative Meningismus or Lymphadenopathy Chest Chest Inspection: Symmetric Chest Wall Rise; negative Tenderness Respiratory Respiratory Exam: Normal Lung Sounds Bilat; negative Chest Wall Tenderness, Respiratory Distress or Stridor Cardiovascular Cardiovascular Exam: Regular Rate, Normal Rhythm and Normal Heart Sounds Abdominal Exam Abdominal Exam: Tenderness, Guarding and Hyperactive Bowel Sounds; negative Trauma, Ascites or Pulsatile Mass Rectal Stool Characteristics: Liquid and Brown Extremeties Extremities Exam: Other (Hands and feet are somewhat cyanotic but with good range of motion her hands and legs and part of her lower close to have dried stool liquid stool in her skin. The patient is hypotensive with palpable distal pulses but weak.) Neurologic Neurological Exam: Alert, Oriented X3 and CN II-XII Intact; negative Motor Sensory Deficit COURSE Treatment Treatment: On arrival to the ER the patient was acutely hypotensive she was awake and was able to give us additional information stating that she been sick for 10 days having profuse diarrhea nausea poor appetite she feels very weak she has liquid brown stool on her body hands and legs. Her hands and extremity and her feet are both cyanotic appearing all over however she has full range of motion and sensation. The patient is very interactive. is also elderly is at bedside. He had he has not been sick according to the patient and her . Patient denies having any chest pain or syncopal episodes. She denies having a fever although at times she felt hot but did not recorded fever. Patient's had a history of gastroenteritis in the past; the patient also recently has lost 75 pounds on a Ozempic type injection. Consultation Consultation Comments: I spoke to the hospitalist on Dr. Phipps who accepts the patient for admission at our hospital [facility]. [facility] Labs Reviewed 01/18/25 15:16 01/18/25 15:16 Laboratory: WBC 11.0 X10^3/uL (3.6-10.0) H 01/18/25 15:16 RBC 5.21 X10^6/uL (3.5-5.4) 01/18/25 15:16 Hgb 14.0 g/dL (12.0-16.0) 01/18/25 15:16 Hct 41.6 % (36.0-47.0) 01/18/25 15:16 MCV 79.7 fL (80.0-100.0) L 01/18/25 15:16 MCH 26.8 pg (27.0-34.0) L 01/18/25 15:16 MCHC 33.7 g/dL (33.0-35.0) 01/18/25 15:16 RDW 17.4 % (11.6-16.5) H 01/18/25 15:16 Plt Count 520 X10^3/uL (150.0-450.0) H 01/18/25 15:16 Plt Count Comment Adequate (ADEQUATE) 01/18/25 15:16 MPV 8.1 fL (7.4-11.0) 01/18/25 15:16 Neut % (Auto) 88.2 % (42.0-75.0) H 01/18/25 15:16 Lymph % (Auto) 9.5 % (21.0-51.0) L 01/18/25 15:16 [place] % (Auto) 2.0 % (0.0-13.0) 01/18/25 15:16 Eos % (Auto) 0.1 % (0.9-2.9) L 01/18/25 15:16 Baso % (Auto) 0.2 % (0.2-1.0) 01/18/25 15:16 Neut # (Auto) 9.7 x10^3/uL (2.2-4.8) H 01/18/25 15:16 Lymph # (Auto) 1.0 X10^3/uL (1.3-2.9) L 01/18/25 15:16 [place] # (Auto) 0.2 x10^3/uL (0.3-0.8) L 01/18/25 15:16 Eos # (Auto) 0.0 x10^3/uL (0.0-0.2) 01/18/25 15:16 Baso # (Auto) 0.0 X10^3/uL (0.0-0.1) 01/18/25 15:16 Absolute Nucleated RBC 0.0 /100WBC 01/18/25 15:16 Total Counted 100 01/18/25 15:16 Neutrophils % (Manual) 79 % (39-76) H 01/18/25 15:16 Band Neutrophils % 0 % (0-10) 01/18/25 15:16 Lymphocytes % (Manual) 14 % (13-43) 01/18/25 15:16 Monocytes % (Manual) 7 % (4-9) 01/18/25 15:16 Eosinophils % (Manual) 0 % (0-6) 01/18/25 15:16 Basophils % (Manual) 0 % (0-1) 01/18/25 15:16 Plt Morphology Comment Normal (NORMAL) 01/18/25 15:16 RBC Morphology Abnormal (NORMAL) A 01/18/25 15:16 Hypochromasia Slight A 01/18/25 15:16 Microcytosis Slight A 01/18/25 15:16 Stomatocytes Slight A 01/18/25 15:16 Sodium 123 mmol/L (136-145) L* 01/18/25 15:16 Corrected Sodium 123 mmol/L (136-145) L 01/18/25 15:16 Potassium 3.7 mmol/L (3.5-5.1) 01/18/25 15:16 Chloride 89 mmol/L (98-107) L 01/18/25 15:16 Carbon Dioxide 16.7 mmol/L (21-32) L 01/18/25 15:16 BUN 56 mg/dL (7-18) H 01/18/25 15:16 Creatinine 1.15 mg/dL (0.55-1.02) H 01/18/25 15:16 Est GFR (MDRD) Af Amer 60 (>60) 01/18/25 15:16 Est GFR (MDRD) Non-Af 50 (>60) L 01/18/25 15:16 Glucose 116 mg/dL (65-99) H 01/18/25 15:16 Lactic Acid 2.2 mmol/L (0.4-2.0) H 01/18/25 21:45 Calcium 8.4 mg/dL (8.5-10.1) L 01/18/25 15:16 Corrected Calcium 9.5 mg/dL (8.5-10.1) 01/18/25 15:16 Total Bilirubin 0.50 mg/dL (0.2-1.0) 01/18/25 15:16 AST 21 Units/L (15-37) 01/18/25 15:16 ALT 36 Units/L (12-78) 01/18/25 15:16 Alkaline Phosphatase 125 Units/L (46-116) H 01/18/25 15:16 Ammonia < 10 umol/L (11-32) L 01/18/25 19:24 Creatine Kinase 67 Units/L (26-192) 01/18/25 21:45 Troponin I High Sens 5.8 ng/L (4.0-60.0) 01/18/25 21:45 Total Protein 6.7 g/dL (6.4-8.2) 01/18/25 15:16 Albumin 2.6 g/dL (3.4-5.0) L 01/18/25 15:16 Globulin 4.1 g/dL (2.5-4.5) 01/18/25 15:16 Albumin/Globulin Ratio 0.6 Ratio (1.1-2.1) L 01/18/25 15:16 XRAY X-ray Results: CT of the abdomen pelvis shows colitis. Chest x-ray did not show any acute findings. Refer to radiology notes on both. EKG Rate: 77 [place]: LAD Rhythm: NSR Block: None Hypertrophy: LVH ST: Normal Opioid Opioid Risk Tool Age (Saul box if 16-45): No History of Preadolescent Sexual Abuse: No Total: 0 Total Score Risk Category: Low Risk Copyright: Jozef CABALLERO predicting aberrant behaviors Discharge Plan Diagnosis Discharge Problem: Dehydration Discharge Plan Patient Disposition: 09 ADMITTED INPATIENT Condition: Stable Orders to Discharge Patient Discharge Orders: Transfer (Routine); Ordered 01/18/25 Ordered By: Berta Boswell
[2025-01-18 15:48] LABS: RED CELL DISTRIBUTION WIDTH 17.4 % (11.6-16.5)
[2025-01-18] MEDS: ZOFRAN INJ 4 MG VIAL IVP ONE (15:52)
[2025-01-18] MEDS: PROTONIX INJ 40 MG VIAL IVP ONE (15:52)
[2025-01-18 15:54] LABS: MEAN PLATELET VOLUME 8.1 fL (7.4-11.0)
[2025-01-18 15:57] LABS: COR CA(FOR HYPOALB) 9.5 mg/dL (8.5-10.1); COR NA(FOR HYPERGLY) 123.0 mmol/L (136-145); CREATININE 1.15 mg/dL (0.55-1.02); eGFR NON BLACK RACES 50.0 (>60)
--- NOTE | 2025-01-18 16:04 | EKG ---
Test Reason : hypotension Blood Pressure : */* mmHG Vent. Rate : 77 BPM Atrial Rate : 77 BPM P-R Int : 206 ms QRS Dur : 108 ms QT Int : 422 ms P-R-T Axes : 39 -36 48 degrees QTc Int : 477 ms Normal sinus rhythm Left axis deviation Minimal voltage criteria for LVH, may be normal variant ( [place] product ) Septal infarct , age undetermined Possible Lateral infarct , age undetermined Abnormal ECG No previous ECGs available Confirmed by Sahil Strickland MD ([id number]) on 01/19/2025 4:52:52 AM Referred By: Confirmed By: Sahil Strickland MD
[2025-01-18 16:28] LABS: BAND NEUTROPHILS % 0 % (0-10); BASOPHILS % (MANUAL) 0 % (0-1); PLATELET MORPHOLOGY COMMENT NORMAL (NORMAL)
[2025-01-18] MEDS: OMNIPAQUE 350 mg/mL 100 mL BTL IVP NR (19:19)
[2025-01-18] MEDS ORDERED: OMNIPAQUE 350 mg/mL 100 mL BTL 100 ML ONE (19:24)
[2025-01-18] MEDS ORDERED: NS 100 ML IV 100 ML ONE (19:24)
--- NOTE | 2025-01-18 20:01 | CT ---
EXAM: ABDCMEN/PELVIS WITH CON HISTORY: NVD; Dehydration; Pt c/o diarrhea, vomiting, tired and weak x10 days ago; pt states "I just don't feel good". states diarrhea is watery and pt is having incont episodes. Pt states she was having lower abdominal pain on Thursday when sx started, but currently denies any pain. Pt states she has not taken her BP medication today. COMPARISON: May 28, 2023 TECHNIQUE: Axial CT images of the abdomen and pelvis were obtained after the administration of 100 mL Omnipaque 350 IV contrast and reformatted into coronal and sagittal planes for further evaluation. Radiation dose: 812.37 mGy-cm total DLP FINDINGS: Lung bases are clear. Stomach appears normal. Solid visceral organs of the upper abdomen are unremarkable. Gallbladder appears normal with no biliary dilatation. Homogeneous enhancement of the kidneys without hydronephrosis or hydroureter. Unremarkable appearance of the urinary bladder. Status post hysterectomy. Mild colonic wall thickening involving the ascending colon. Multiple loops of mildly widened gas and fluid-filled loops of small bowel. No small bowel wall thickening. No evidence of acute appendicitis. No pneumoperitoneum. No significant fluid collection. No adenopathy. No acute osseous abnormality. Moderate to severe multilevel degenerative disc and joint changes. IMPRESSION: Mild colonic wall thickening involving the ascending colon could represent infectious or inflammatory colitis. Multiple loops of mildly widened gas and fluid-filled loops of small bowel, without evidence of obstruction or small-bowel wall thickening, could represent a nonspecific enteritis. THIS IS AN ELECTRONICALLY VERIFIED FINAL REPORT 01/18/2025 7:58 PM - Electronically signed by Shane Valderrama MD
--- NOTE | 2025-01-18 21:46 | RAD ---
EXAM: CHEST, 1 VIEW HISTORY: hypotension; Pt c/o diarrhea, vomiting, tired and weak x10 days ago; pt states "I just don't feel good". states diarrhea is watery and pt is having incont episodes. Pt states she was having lower abdominal pain on Thursday when sx started, but currently denies any pain. Pt states she has not taken her BP medication today. COMPARISON: No relevant prior studies available. TECHNIQUE: Chest radiographic imaging, AP portable projection, 1 image FINDINGS: No cardiomegaly. No focal airspace disease. No pleural effusion. No pneumothorax. No acute osseous abnormality. IMPRESSION: No imaging findings of acute cardiopulmonary disease. THIS IS AN ELECTRONICALLY VERIFIED FINAL REPORT 01/18/2025 9:42 PM - Electronically signed by Shane Valderrama MD
--- NOTE | 2025-01-18 22:09 | EKG ---
Test Reason : hypotension Blood Pressure : */* mmHG Vent. Rate : 81 BPM Atrial Rate : 81 BPM P-R Int : 204 ms QRS Dur : 108 ms QT Int : 418 ms P-R-T Axes : 43 -27 44 degrees QTc Int : 485 ms Normal sinus rhythm Minimal voltage criteria for LVH, may be normal variant ( [place] product ) Septal infarct (cited on or before 18-JAN-2025) Possible Lateral infarct (cited on or before 18-JAN-2025) Abnormal ECG When compared with ECG of 18-JAN-2025 16:02, (Unconfirmed) No significant change was found Confirmed by Sahil Strickland MD ([id number]) on 01/19/2025 4:51:33 AM Referred By: Confirmed By: Sahil Strickland MD
[2025-01-19] MEDS ORDERED: TYLENOL 325 MG TAB PO PRN (00:01)
[2025-01-19] MEDS ORDERED: CONSULT PHARMACY - POTASSIUM & MAGNESIUM XX SCH ×2 (00:01→07:00)
[2025-01-19] MEDS: BUTT CREAM (COMPOUND) TOP PRN (00:21)
[2025-01-19] MEDS: NS 1,000 ML IV 1,000 ML IV SCH ×2 (00:21→00:31)
[2025-01-19] MEDS: CIPRO IV 400 MG PREMIX* 400 MG/200 ML IV.SOLN. IV SCH (00:22)
[2025-01-19] MEDS: FLAGYL IV PREMIX 500 MG BAG 500 MG/100 ML BAG IV SCH (00:22)
[2025-01-19] MEDS: K-DUR TAB 20 MEQ PO SCH ×2 (00:33→08:45)
[2025-01-19 01:04] VITALS: BMI 33.7
[2025-01-19] MEDS: NORCO 5/325 MG TAB PO PRN (01:47)
[2025-01-19 04:37] LABS: BLOOD/HEMOGLOBIN,URINE 2+ (NEGATIVE); LEUKOCYTE ESTERASE ,URINE 2+ (NEGATIVE); NITRITES,URINE NEGATIVE (NEGATIVE)
[2025-01-19 04:44] LABS: APPEARANCE,URINE CLOUDY (CLEAR); SQUAMOUS EPITHELIAL CELL,UR FEW /HPF (NEGATIVE)
[2025-01-19] MEDS: ULTRAM PO PRN (05:10)
--- NOTE | 2025-01-19 05:10 | EKG ---
Test Reason : hypotension Blood Pressure : */* mmHG Vent. Rate : 82 BPM Atrial Rate : 82 BPM P-R Int : 178 ms QRS Dur : 114 ms QT Int : 424 ms P-R-T Axes : 43 -41 60 degrees QTc Int : 495 ms Sinus rhythm with premature atrial complexes Left axis deviation Minimal voltage criteria for LVH, may be normal variant ( [place] product ) Septal infarct (cited on or before 18-JAN-2025) Possible Lateral infarct (cited on or before 18-JAN-2025) Abnormal ECG When compared with ECG of 18-JAN-2025 22:08, premature atrial complexes are now present Confirmed by Sahil Strickland MD ([id number]) on 01/22/2025 8:11:02 AM Referred By: Confirmed By: Sahil Strickland MD
[2025-01-19 05:14] LABS: MEAN PLATELET VOLUME 7.9 fL (7.4-11.0); RED CELL DISTRIBUTION WIDTH 17.5 % (11.6-16.5)
[2025-01-19 05:23] LABS: COR CA(FOR HYPOALB) 9.4 mg/dL (8.5-10.1); COR NA(FOR HYPERGLY) 125 mmol/L (136-145); CREATININE 0.97 mg/dL (0.55-1.02); eGFR NON BLACK RACES > 60 (>60)
[2025-01-19 05:41] LABS: PLATELET MORPHOLOGY COMMENT NORMAL (NORMAL)
[2025-01-19] MEDS: ZOFRAN INJ 4 MG VIAL IVP PRN (09:00)
--- NOTE | 2025-01-19 09:59 | DR.H&P ---
H&P History & Physical for Day of: H&P Date: 01/19/25 Chief Complaint Chief Complaint: abdominal pain diarrhea History of Present Illness History of Present Illness: Patient is a 78-year-old female with a past medical history of hypertension, depression, arthritis, presenting with abdominal pain and diarrhea. She reports that symptoms started last Thursday and has been progressively getting worse. She reports feeling weak. She denies fevers or chills. Labs/imaging: WBC 8.7, hemoglobin 11.8, platelets 427, sodium 125, potassium 3.8, creatinine 0.97, glucose 112, UA consistent with infection, urine/blood cultures pending. CT abdomen and pelvis revealed enteritis and colitis. Patient was admitted for gastroenteritis, dehydration, hyponatremia, acute cystitis. She was started on IV fluids normal saline 125 mL/h. IV antibiotics ciprofloxacin and Flagyl. Will order stool cultures. Will restart medications. Otherwise continue with current treatment plan. Continue closely monitor and follow-up labs/imaging. Time spent for clinical assessment, reviewing labs/imaging, physical exam, decision making and documentation greater than 45 mins. Past Medical History Past Medical History: Anxiety, Arthritis, Depression and Hypertension Past Surgical History Surgical History: , Hysterectomy, Joint Replacement and Tonsillectomy Family History Family Medical History: Diabetes Mellitus, Heart Failure and Hypertension Social History Does patient currently use any type of tobacco product: No Have you used tobacco products in the last 12 months: No Type of Tobacco Use: None Does any household member use tobacco: No Alcohol Use: None Drug Use: None Medications Home Medications: Home Medications Medication Instructions Recorded Confirmed Type cetirizine 10 mg tablet (Zyrtec) 10 mg PO DAILY 01/18/25 History omeprazole 40 mg capsule,delayed 40 mg PO QDAY PRN 06/1601/18/25 History release atenolol 25 mg tablet 25 mg PO QDAY 01/18/2501/18 History celecoxib 200 mg capsule 200 mg PO BID PRN 01/18/25 1 03/20/24 History duloxetine 30 mg capsule,delayed 30 mg PO QDAY 5 01/18/25 History release duloxetine 60 mg capsule,delayed 60 mg PO QDAY 5 01/18/25 History release fluticasone propionate 50 1 spray intranasal DAILY 01/18/25 History mcg/actuation nasal spray,suspension olmesartan 40 mg tablet 40 mg PO QDAY 01/18/2501/18 History oxybutynin chloride 5 mg tablet 10 mg PO BID 01/18/25 01/18/25 History silver sulfadiazine 1 % topical 1 applic topical QDAY 01/18/25 01/18/25 History cream Allergies Allergies Allergy/AdvReac Type Severity Reaction Status Date / Time codeine Allergy Verified 01/18/25 14:34 meperidine (From Demerol) Allergy Verified 01/18/25 14:34 morphine Allergy Verified 01/18/25 14:34 Penicillins Allergy Verified 01/18/25 14:34 Labs 01/19/25 04:50 01/19/25 04:50 Labs: Laboratory WBC 8.7 X10^3/uL (3.6-10.0) 01/19/25 04:50 RBC 4.42 X10^6/uL (3.5-5.4) 01/19/25 04:50 Hgb 11.8 g/dL (12.0-16.0) L D 01/19/25 04:50 Hct 35.1 % (36.0-47.0) L 01/19/25 04:50 MCV 79.4 fL (80.0-100.0) L 01/19/25 04:50 MCH 26.6 pg (27.0-34.0) L 01/19/25 04:50 MCHC 33.5 g/dL (33.0-35.0) 01/19/25 04:50 RDW 17.5 % (11.6-16.5) H 01/19/25 04:50 Plt Count 427 X10^3/uL (150.0-450.0) 01/19/25 04:50 Plt Count Comment Adequate (ADEQUATE) 01/19/25 04:50 MPV 7.9 fL (7.4-11.0) 01/19/25 04:50 Neut % (Auto) 87.9 % (42.0-75.0) H 01/19/25 04:50 Lymph % (Auto) 8.3 % (21.0-51.0) L 01/19/25 04:50 [place] % (Auto) 3.5 % (0.0-13.0) 01/19/25 04:50 Eos % (Auto) 0.1 % (0.9-2.9) L 01/19/25 04:50 Baso % (Auto) 0.2 % (0.2-1.0) 01/19/25 04:50 Neut # (Auto) 7.6 x10^3/uL (2.2-4.8) H 01/19/25 04:50 Lymph # (Auto) 0.7 X10^3/uL (1.3-2.9) L 01/19/25 04:50 [place] # (Auto) 0.3 x10^3/uL (0.3-0.8) 01/19/25 04:50 Eos # (Auto) 0.0 x10^3/uL (0.0-0.2) 01/19/25 04:50 Baso # (Auto) 0.0 X10^3/uL (0.0-0.1) 01/19/25 04:50 Absolute Nucleated RBC 0.2 /100WBC 01/19/25 04:50 Total Counted 100 01/19/25 04:50 Neutrophils % (Manual) 87 % (39-76) H 01/19/25 04:50 Band Neutrophils % 0 % (0-10) 01/18/25 15:16 Lymphocytes % (Manual) 9 % (13-43) L 01/19/25 04:50 Monocytes % (Manual) 4 % (4-9) 01/19/25 04:50 Eosinophils % (Manual) 0 % (0-6) 01/18/25 15:16 Basophils % (Manual) 0 % (0-1) 01/18/25 15:16 Plt Morphology Comment Normal (NORMAL) 01/19/25 04:50 RBC Morphology Abnormal (NORMAL) A 01/19/25 04:50 Hypochromasia Slight A 01/19/25 04:50 Anisocytosis Slight A 01/19/25 04:50 Microcytosis Slight A 01/18/25 15:16 Stomatocytes Slight A 01/18/25 15:16 Sodium 125 mmol/L (136-145) L* 01/19/25 04:50 Corrected Sodium 125 mmol/L (136-145) L 01/19/25 04:50 Potassium 3.8 mmol/L (3.5-5.1) 01/19/25 04:50 Chloride 94 mmol/L (98-107) L 01/19/25 04:50 Carbon Dioxide 17.8 mmol/L (21-32) L 01/19/25 04:50 BUN 51 mg/dL (7-18) H 01/19/25 04:50 Creatinine 0.97 mg/dL (0.55-1.02) 01/19/25 04:50 Est GFR (MDRD) Af Amer > 60 (>60) 01/19/25 04:50 Est GFR (MDRD) Non-Af > 60 (>60) 01/19/25 04:50 Glucose 112 mg/dL (65-99) H 01/19/25 04:50 Lactic Acid 2.2 mmol/L (0.4-2.0) H 01/18/25 21:45 Calcium 7.8 mg/dL (8.5-10.1) L 01/19/25 04:50 Corrected Calcium 9.4 mg/dL (8.5-10.1) 01/19/25 04:50 Magnesium 2.7 mg/dL (2.0-2.9) 01/19/25 04:50 Total Bilirubin 0.50 mg/dL (0.2-1.0) 01/19/25 04:50 AST 14 Units/L (15-37) L 01/19/25 04:50 ALT 24 Units/L (12-78) 01/19/25 04:50 Alkaline Phosphatase 101 Units/L (46-116) 01/19/25 04:50 Ammonia < 10 umol/L (11-32) L 01/18/25 19:24 Creatine Kinase 68 Units/L (26-192) 01/19/25 04:50 Troponin I High Sens 6.3 ng/L (4.0-60.0) 01/19/25 04:50 Total Protein 5.3 g/dL (6.4-8.2) L 01/19/25 04:50 Albumin 2.0 g/dL (3.4-5.0) L 01/19/25 04:50 Globulin 3.3 g/dL (2.5-4.5) 01/19/25 04:50 Albumin/Globulin Ratio 0.6 Ratio (1.1-2.1) L 01/19/25 04:50 Specimen Type Clean catch urine 01/19/25 04:10 Urine Color Dark yellow (YELLOW) 01/19/25 04:10 Urine Appearance Cloudy (CLEAR) 01/19/25 04:10 Urine pH 5.0 (5.0 - 8.0) 01/19/25 04:10 Ur Specific [place] 1.015 (1.000-1.030) 01/19/25 04:10 Urine Protein 2+ (NEGATIVE) 01/19/25 04:10 Urine Glucose (UA) Negative (NEGATIVE) 01/19/25 04:10 Urine Ketones Negative (NEGATIVE) 01/19/25 04:10 Urine Blood 2+ (NEGATIVE) 01/19/25 04:10 Urine Nitrite Negative (NEGATIVE) 01/19/25 04:10 Urine Bilirubin Negative (NEGATIVE) 01/19/25 04:10 Urine Urobilinogen Normal (NORMAL) 01/19/25 04:10 Ur Leukocyte Esterase 2+ (NEGATIVE) 01/19/25 04:10 Urine RBC 10-20 /HPF (0-3) A 01/19/25 04:10 Urine WBC 20-30 /HPF (0-5) A 01/19/25 04:10 Ur Squamous Epith Cells Few /HPF (NEGATIVE) 01/19/25 04:10 Urine Bacteria 3+ /HPF (NEGATIVE) 01/19/25 04:10 Ur Culture Indicated? Yes/culture set up 01/19/25 04:10 Review of Systems Constitutional: No Symptoms Reported Eyes: No Symptoms Reported ENT: No Symptoms Reported Respiratory: No Symptoms Reported Cardiovascular: No Symptoms Reported Gastrointestinal: Abdominal Pain and Diarrhea Genitourinary: No Symptoms Reported Musculoskeletal: No Symptoms Reported Skin: No Symptoms Reported Neurological: No Symptoms Reported Physical Exam Vital Signs: Vital Signs Temperature 98.0 F Temperature 97.6 F Pulse Rate [Right Radial] 83 Pulse Rate [Right Radial] 80 Respiratory Rate 19 Respiratory Rate 19 Respiratory Rate 20 Respiratory Rate 20 Respiratory Rate 20 Respiratory Rate 18 Blood Pressure [Left Arm] 146/65 Blood Pressure [Left Arm] 105/56 O2 Sat by Pulse Oximetry 96 O2 Sat by Pulse Oximetry 98 Oriented: Normal Eyes: Normal Ear: Normal Nose: Normal Throat: Normal Respiratory: Clear Throughout Cardiovascular: Normal : Normal Auscultation: Bowel Sounds: Normal Palpation: Normal Tenderness: Epigastric and Mild Skin: Decreased [place] Musculoskeletal: Normal Psychiatric: Normal Mood Description: Calm and Appropriate Affect: Normal Speech Pattern: Clear and Appropriate Assessment/Plan (1) Gastroenteritis: Status: Acute (2) Dehydration: Status: Acute (3) Hyponatremia: Status: Acute (4) UTI (urinary tract infection): Qualifiers: Hematuria presence: without hematuria Urinary tract infection type: a cute cystitis Qualified Code(s): N30.00 - Acute cystitis without hematuria Status: Acute (5) Hypertension: Qualifiers: Hypertension type: primary hypertension Qualified Code(s): I10 - Essential (primary) hypertension Status: Acute Review H&P Reviewed: Yes Patient was examined?: Yes
[2025-01-19] MEDS: TENORMIN PO SCH (11:13)
[2025-01-19] MEDS: SILVADENE TOP SCH (11:13)
[2025-01-19] MEDS: CYMBALTA PO SCH (11:13)
[2025-01-19] MEDS: FLONASE NASAL SPRAY ENOSTRIL SCH (11:13)
[2025-01-19] MEDS: DILAUDID INJ IVP PRN (13:18)
[2025-01-19] MEDS: ROBITUSSIN DM PO PRN (20:44)
[2025-01-19] MEDS: TUSSIONEX PENNKINETIC SUSP PO PRN (23:46)
[2025-01-20 06:27] LABS: MEAN PLATELET VOLUME 7.7 fL (7.4-11.0); RED CELL DISTRIBUTION WIDTH 17.9 % (11.6-16.5)
[2025-01-20 06:32] LABS: COR CA(FOR HYPOALB) 9.3 mg/dL (8.5-10.1); CREATININE 0.77 mg/dL (0.55-1.02); eGFR NON BLACK RACES > 60 (>60)
[2025-01-20] MEDS: PEPCID 20 MG VIAL 20 MG in NS 50 ML IV 50 ML IV SCH (08:51)
[2025-01-20] MEDS: TESSALON PERLES PO PRN (09:54)
[2025-01-20] MEDS: ZOFRAN TAB 4 MG PO PRN (10:48)
[2025-01-20] MEDS: PHENERGAN INJ 25 MG IM PRN (14:44)
[2025-01-21 06:43] LABS: MEAN PLATELET VOLUME 7.8 fL (7.4-11.0); RED CELL DISTRIBUTION WIDTH 17.5 % (11.6-16.5)
[2025-01-21 06:47] LABS: COR CA(FOR HYPOALB) 9.6 mg/dL (8.5-10.1); CREATININE 0.83 mg/dL (0.55-1.02); eGFR NON BLACK RACES > 60 (>60)
[2025-01-21 08:23] VITALS: RESP 19
--- NOTE | 2025-01-21 09:28 | PCM.PROG ---
Progress Note Progress Note for Day of Date of Exam: 01/20/25 Subjective Subjective: Patient seen at bedside, no acute events overnight. She reports feeling weak and having some N/V. She is admitted for colitis and UTI. She is currently on IV antibiotics. Labs/imaging reviewed: -WBC 6.0 Hgb 11.4 K 4.2 Na 129 Cr 0.77 - Urine Cx: contamination Plan: Continue current treatment with hydration and IV antibiotics. Advance diet as tolerated. Will re-assess after lunch for possible discharge. Patient states she has been on semaglutide for weight loss and has been having these symptoms. Her dose was reduced recently due to poor oral intake and N/V. Replace electrolytes as per protocol. Continue home meds. Continue anti-emetics. Monitor AM labs/imaging. Past Medical Family Social History Allergies: Allergies codeine Allergy (Verified 01/18/25 14:34) meperidine (From Demerol) Allergy (Verified 01/18/25 14:34) morphine Allergy (Verified 01/18/25 14:34) Penicillins Allergy (Verified 01/18/25 14:34) Vital Signs and I&O's Vital Signs: Vital Signs Temperature 98.1 F Temperature 98.1 F Pulse Rate [Right Radial] 75 Pulse Rate [Right Radial] 75 Respiratory Rate 19 Respiratory Rate 18 Blood Pressure [Right Arm] 143/75 Blood Pressure [Right Arm] 133/67 O2 Sat by Pulse Oximetry 93 O2 Sat by Pulse Oximetry 95 Intake and Output: Intake & Output 01/18/25 01/19/25 01/20/25 01/21/25 23:59 23:59 23:59 23:59 Intake Total 3535 / 3535 2235 / 2235 100 / 100 Output Total 650 / 650 Balance 2885 / 2885 2235 / 2235 100 / 100 Physical Exam Oriented: Normal Eyes: Normal Ear: Normal Nose: Normal Throat: Normal Respiratory: Normal Cardiovascular: Normal Auscultation: Bowel Sounds: Normal Palpation: Normal Tenderness: Epigastric and Mild Skin: Decreased Turgur Musculoskeletal: Normal Psychiatric: Normal Mood Description: Calm and Appropriate Affect: Normal Speech Pattern: Clear and Appropriate Laboratory and Diagnostics 01/21/25 05:21 01/21/25 05:21 Labs: 01/20/25 10:30 Stool - Final 01/18/25 15:26 Blood Blood Culture - Preliminary 01/18/25 15:16 Blood Blood Culture - Preliminary 01/19/25 04:10 Urine,Clean Catch Urine Culture - Final Laboratory WBC 7.2 X10^3/uL (3.6-10.0) 01/21/25 05:21 RBC 4.35 X10^6/uL (3.5-5.4) 01/21/25 05:21 Hgb 11.5 g/dL (12.0-16.0) L 01/21/25 05:21 Hct 35.3 % (36.0-47.0) L 01/21/25 05:21 MCV 81.2 fL (80.0-100.0) 01/21/25 05:21 MCH 26.5 pg (27.0-34.0) L 01/21/25 05:21 MCHC 32.6 g/dL (33.0-35.0) L 01/21/25 05:21 RDW 17.5 % (11.6-16.5) H 01/21/25 05:21 Plt Count 393 X10^3/uL (150.0-450.0) 01/21/25 05:21 Plt Count Comment Adequate (ADEQUATE) 01/19/25 04:50 MPV 7.8 fL (7.4-11.0) 01/21/25 05:21 Neut % (Auto) 83.7 % (42.0-75.0) H 01/21/25 05:21 Lymph % (Auto) 11.3 % (21.0-51.0) L 01/21/25 05:21 White % (Auto) 4.8 % (0.0-13.0) 01/21/25 05:21 Eos % (Auto) 0.2 % (0.9-2.9) L 01/21/25 05:21 Baso % (Auto) 0 % (0.2-1.0) L 01/21/25 05:21 Neut # (Auto) 6.0 x10^3/uL (2.2-4.8) H 01/21/25 05:21 Lymph # (Auto) 0.8 X10^3/uL (1.3-2.9) L 01/21/25 05:21 White # (Auto) 0.3 x10^3/uL (0.3-0.8) 01/21/25 05:21 Eos # (Auto) 0.0 x10^3/uL (0.0-0.2) 01/21/25 05:21 Baso # (Auto) 0.0 X10^3/uL (0.0-0.1) 01/21/25 05:21 Absolute Nucleated RBC 0.0 /100WBC 01/21/25 05:21 Total Counted 100 01/19/25 04:50 Neutrophils % (Manual) 87 % (39-76) H 01/19/25 04:50 Band Neutrophils % 0 % (0-10) 01/18/25 15:16 Lymphocytes % (Manual) 9 % (13-43) L 01/19/25 04:50 Monocytes % (Manual) 4 % (4-9) 01/19/25 04:50 Eosinophils % (Manual) 0 % (0-6) 01/18/25 15:16 Basophils % (Manual) 0 % (0-1) 01/18/25 15:16 Plt Morphology Comment Normal (NORMAL) 01/19/25 04:50 RBC Morphology Abnormal (NORMAL) A 01/19/25 04:50 Hypochromasia Slight A 01/19/25 04:50 Anisocytosis Slight A 01/19/25 04:50 Microcytosis Slight A 01/18/25 15:16 Stomatocytes Slight A 01/18/25 15:16 Sodium 130 mmol/L (136-145) L 01/21/25 05:21 Corrected Sodium TNP 01/21/25 05:21 Potassium 4.1 mmol/L (3.5-5.1) 01/21/25 05:21 Chloride 100 mmol/L (98-107) 01/21/25 05:21 Carbon Dioxide 20.5 mmol/L (21-32) L 01/21/25 05:21 BUN 31 mg/dL (7-18) H 01/21/25 05:21 Creatinine 0.83 mg/dL (0.55-1.02) 01/21/25 05:21 Est GFR (MDRD) Af Amer > 60 (>60) 01/21/25 05:21 Est GFR (MDRD) Non-Af > 60 (>60) 01/21/25 05:21 Glucose 90 mg/dL (65-99) 01/21/25 05:21 Lactic Acid 2.2 mmol/L (0.4-2.0) H 01/18/25 21:45 Calcium 7.9 mg/dL (8.5-10.1) L 01/21/25 05:21 Corrected Calcium 9.6 mg/dL (8.5-10.1) 01/21/25 05:21 Magnesium 2.4 mg/dL (2.0-2.9) 01/20/25 05:42 Total Bilirubin 0.40 mg/dL (0.2-1.0) 01/21/25 05:21 AST 15 Units/L (15-37) 01/21/25 05:21 ALT 16 Units/L (12-78) 01/21/25 05:21 Alkaline Phosphatase 96 Units/L (46-116) 01/21/25 05:21 Ammonia < 10 umol/L (11-32) L 01/18/25 19:24 Creatine Kinase 68 Units/L (26-192) 01/19/25 04:50 Troponin I High Sens 6.3 ng/L (4.0-60.0) 01/19/25 04:50 Total Protein 5.0 g/dL (6.4-8.2) L 01/21/25 05:21 Albumin 1.9 g/dL (3.4-5.0) L 01/21/25 05:21 Globulin 3.1 g/dL (2.5-4.5) 01/21/25 05:21 Albumin/Globulin Ratio 0.6 Ratio (1.1-2.1) L 01/21/25 05:21 Specimen Type Clean catch urine 01/19/25 04:10 Urine Color Dark yellow (YELLOW) 01/19/25 04:10 Urine Appearance Cloudy (CLEAR) 01/19/25 04:10 Urine pH 5.0 (5.0 - 8.0) 01/19/25 04:10 Ur Specific [place] 1.015 (1.000-1.030) 01/19/25 04:10 Urine Protein 2+ (NEGATIVE) 01/19/25 04:10 Urine Glucose (UA) Negative (NEGATIVE) 01/19/25 04:10 Urine Ketones Negative (NEGATIVE) 01/19/25 04:10 Urine Blood 2+ (NEGATIVE) 01/19/25 04:10 Urine Nitrite Negative (NEGATIVE) 01/19/25 04:10 Urine Bilirubin Negative (NEGATIVE) 01/19/25 04:10 Urine Urobilinogen Normal (NORMAL) 01/19/25 04:10 Ur Leukocyte Esterase 2+ (NEGATIVE) 01/19/25 04:10 Urine RBC 10-20 /HPF (0-3) A 01/19/25 04:10 Urine WBC 20-30 /HPF (0-5) A 01/19/25 04:10 Ur Squamous Epith Cells Few /HPF (NEGATIVE) 01/19/25 04:10 Urine Bacteria 3+ /HPF (NEGATIVE) 01/19/25 04:10 Ur Culture Indicated? Yes/culture set up 01/19/25 04:10 Plan (1) Gastroenteritis: Status: Acute (2) Dehydration: Status: Acute (3) Hyponatremia: Status: Acute (4) UTI (urinary tract infection): Status: Acute Qualifiers: Hematuria presence: without hematuria Urinary tract infection type: a cute cystitis Qualified Code(s): N30.00 - Acute cystitis without hematuria (5) Hypertension: Status: Acute Qualifiers: Hypertension type: primary hypertension Qualified Code(s): I10 - Essential (primary) hypertension
[2025-01-21] MEDS: NS 250 ML IV 250 ML IV ONE (10:59)
[2025-01-21 12:01] VITALS: BP 108/58; PULSE 72; TEMP 98.3; O2SAT 94
[2025-01-21] MEDS: FLAGYL TAB 500 MG PO ONE (14:37)
[2025-01-21] MEDS: ZOFRAN TAB 4 MG ONE (14:37)
[2025-01-21] MEDS: TESSALON PERLES PO ONE (14:37)
[2025-01-21] MEDS: CIPRO TAB 500 MG PO ONE (14:37)
--- NOTE | 2025-01-23 13:16 | W.DIS.FURT ---
Summary of Discharge Discharge Summary of Date Date of Exam: 01/21/25 Admission Date Date of Admission: 01/19/25 Admission Diagnosis Patient Problems (Updated 01/19/25 @ 09:58 by Sebastian Cartagena MD) Dehydration (Acute) E86.0 Hospital Course: Patient is a 78-year-old female with a past medical history of hypertension, depression, arthritis, presenting with abdominal pain and diarrhea. She reports that symptoms started last Thursday and has been progressively getting worse. She reports feeling weak. She denies fevers or chills. Labs/imaging: WBC 8.7, hemoglobin 11.8, platelets 427, sodium 125, potassium 3.8, creatinine 0.97, glucose 112, UA consistent with infection, urine/blood cultures pending. CT abdomen and pelvis revealed enteritis and colitis. Patient was admitted for gastroenteritis, dehydration, hyponatremia, acute cystitis. She was started on IV fluids normal saline 125 mL/h. IV antibiotics ciprofloxacin and Flagyl. Her labs were monitored daily and electrolytes replaced as needed. Her diet was advanced as tolerated. Her sodium improved with fluids. Stool culture was negative. Blood cultures were negative. Urine culture was contaminated. She was feeling better and tolerating p.o. intake. She was stable to be discharged home on p.o. antibiotics. She will follow-up with PCP as scheduled. Time spent for clinical assessment, reviewing labs/imaging, physical exam, decision making and documentation greater than 45 mins. Vital Signs: Vital Signs (72 hours) 01/18/25 14:59 01/18/25 15:03 01/18/25 15:03 Temperature 98.1 F Pulse Rate 88 84 Pulse Rate [Right Radial] Respiratory Rate 16 23 Blood Pressure 69/40 73/45 Blood Pressure [Left Arm] Blood Pressure [Right Arm] O2 Sat by Pulse Oximetry 95 Oxygen Delivery Method Room Air Room Air FIO2% 01/18/25 15:06 01/18/25 15:06 01/18/25 15:06 Temperature Pulse Rate 81 Pulse Rate [Right Radial] Respiratory Rate 22 Blood Pressure 94/58 Blood Pressure [Left Arm] Blood Pressure [Right Arm] O2 Sat by Pulse Oximetry 95 Oxygen Delivery Method Room Air Room Air FIO2% 01/18/25 15:15 01/18/25 15:30 01/18/25 15:31 Temperature Pulse Rate 79 76 75 Pulse Rate [Right Radial] Respiratory Rate 16 21 17 Blood Pressure Blood Pressure [Left Arm] Blood Pressure [Right Arm] O2 Sat by Pulse Oximetry 100 97 98 Oxygen Delivery Method Room Air FIO2% 01/18/25 15:31 01/18/25 15:45 01/18/25 16:00 Temperature Pulse Rate 75 Pulse Rate [Right Radial] Respiratory Rate 19 Blood Pressure 120/57 114/64 Blood Pressure [Left Arm] Blood Pressure [Right Arm] O2 Sat by Pulse Oximetry 100 Oxygen Delivery Method FIO2% 01/18/25 16:00 01/18/25 16:15 01/18/25 16:30 Temperature Pulse Rate 75 75 75 Pulse Rate [Right Radial] Respiratory Rate 19 19 22 Blood Pressure Blood Pressure [Left Arm] Blood Pressure [Right Arm] O2 Sat by Pulse Oximetry 99 100 Oxygen Delivery Method FIO2% 01/18/25 16:30 01/18/25 16:45 01/18/25 17:00 Temperature Pulse Rate 74 75 Pulse Rate [Right Radial] Respiratory Rate 20 Blood Pressure 102/71 Blood Pressure [Left Arm] Blood Pressure [Right Arm] O2 Sat by Pulse Oximetry 96 Oxygen Delivery Method FIO2% 01/18/25 17:00 01/18/25 17:15 01/18/25 17:30 Temperature Pulse Rate 76 75 Pulse Rate [Right Radial] Respiratory Rate 21 20 Blood Pressure 106/59 Blood Pressure [Left Arm] Blood Pressure [Right Arm] O2 Sat by Pulse Oximetry 96 96 Oxygen Delivery Method FIO2% 01/18/25 17:30 01/18/25 17:45 01/18/25 18:00 Temperature Pulse Rate 76 81 Pulse Rate [Right Radial] Respiratory Rate 22 21 Blood Pressure 100/55 Blood Pressure [Left Arm] Blood Pressure [Right Arm] O2 Sat by Pulse Oximetry 96 99 Oxygen Delivery Method FIO2% 01/18/25 18:15 01/18/25 18:30 01/18/25 18:31 Temperature Pulse Rate 81 83 81 Pulse Rate [Right Radial] Respiratory Rate 21 21 17 Blood Pressure Blood Pressure [Left Arm] Blood Pressure [Right Arm] O2 Sat by Pulse Oximetry 97 91 L 98 Oxygen Delivery Method FIO2% 01/18/25 18:31 01/18/25 18:45 01/18/25 19:00 Temperature Pulse Rate 80 Pulse Rate [Right Radial] Respiratory Rate 21 Blood Pressure 84/54 96/51 Blood Pressure [Left Arm] Blood Pressure [Right Arm] O2 Sat by Pulse Oximetry 95 Oxygen Delivery Method FIO2% 01/18/25 19:00 01/18/25 19:15 01/18/25 19:43 Temperature Pulse Rate 80 83 83 Pulse Rate [Right Radial] Respiratory Rate 18 23 Blood Pressure Blood Pressure [Left Arm] Blood Pressure [Right Arm] O2 Sat by Pulse Oximetry 98 94 L Oxygen Delivery Method FIO2% 01/18/25 19:45 01/18/25 20:00 01/18/25 20:15 Temperature Pulse Rate 85 85 83 Pulse Rate [Right Radial] Respiratory Rate 23 18 22 Blood Pressure Blood Pressure [Left Arm] Blood Pressure [Right Arm] O2 Sat by Pulse Oximetry Oxygen Delivery Method FIO2% 01/18/25 20:30 01/18/25 20:45 01/18/25 21:00 Temperature Pulse Rate 85 83 80 Pulse Rate [Right Radial] Respiratory Rate 21 20 21 Blood Pressure Blood Pressure [Left Arm] Blood Pressure [Right Arm] O2 Sat by Pulse Oximetry 95 99 Oxygen Delivery Method FIO2% 01/18/25 21:11 01/18/25 21:11 01/18/25 21:15 Temperature Pulse Rate 83 80 Pulse Rate [Right Radial] Respiratory Rate 20 18 Blood Pressure 113/59 Blood Pressure [Left Arm] Blood Pressure [Right Arm] O2 Sat by Pulse Oximetry 90 L 96 Oxygen Delivery Method FIO2% 01/18/25 21:30 01/18/25 21:30 01/18/25 21:45 Temperature Pulse Rate 81 80 Pulse Rate [Right Radial] Respiratory Rate 22 18 Blood Pressure 108/57 Blood Pressure [Left Arm] Blood Pressure [Right Arm] O2 Sat by Pulse Oximetry 99 99 Oxygen Delivery Method FIO2% 01/18/25 22:00 01/18/25 22:00 01/18/25 22:15 Temperature Pulse Rate 81 80 Pulse Rate [Right Radial] Respiratory Rate 21 22 Blood Pressure 106/75 Blood Pressure [Left Arm] Blood Pressure [Right Arm] O2 Sat by Pulse Oximetry 98 97 Oxygen Delivery Method FIO2% 01/18/25 22:30 01/18/25 22:31 01/18/25 22:31 Temperature Pulse Rate 81 82 Pulse Rate [Right Radial] Respiratory Rate 21 22 Blood Pressure 94/52 Blood Pressure [Left Arm] Blood Pressure [Right Arm] O2 Sat by Pulse Oximetry 99 97 Oxygen Delivery Method FIO2% 01/18/25 22:45 01/18/25 23:00 01/18/25 23:00 Temperature Pulse Rate 85 81 Pulse Rate [Right Radial] Respiratory Rate 25 H 21 Blood Pressure 106/59 Blood Pressure [Left Arm] Blood Pressure [Right Arm] O2 Sat by Pulse Oximetry 98 96 Oxygen Delivery Method FIO2% 01/18/25 23:15 01/19/25 00:00 01/19/25 00:00 Temperature 98.5 F 98.5 F Pulse Rate 84 Pulse Rate [Right Radial] 75 75 Respiratory Rate 22 20 20 Blood Pressure Blood Pressure [Left Arm] 84/50 84/50 Blood Pressure [Right Arm] O2 Sat by Pulse Oximetry 96 95 95 Oxygen Delivery Method Room Air Room Air FIO2% 01/19/25 01:47 01/19/25 02:47 01/19/25 04:00 Temperature 97.6 F Pulse Rate Pulse Rate [Right Radial] 80 Respiratory Rate 20 18 20 Blood Pressure Blood Pressure [Left Arm] 105/56 Blood Pressure [Right Arm] O2 Sat by Pulse Oximetry 98 Oxygen Delivery Method Room Air FIO2% 01/19/25 04:29 01/19/25 05:10 01/19/25 06:10 Temperature Pulse Rate Pulse Rate [Right Radial] Respiratory Rate 20 20 Blood Pressure Blood Pressure [Left Arm] Blood Pressure [Right Arm] O2 Sat by Pulse Oximetry Oxygen Delivery Method Room Air FIO2% 21 01/19/25 07:39 01/19/25 08:45 01/19/25 09:05 Temperature 98.0 F Pulse Rate Pulse Rate [Right Radial] 83 Respiratory Rate 19 19 Blood Pressure Blood Pressure [Left Arm] 146/65 Blood Pressure [Right Arm] O2 Sat by Pulse Oximetry 96 Oxygen Delivery Method Room Air Room Air FIO2% 21 01/19/25 09:45 01/19/25 12:20 01/19/25 13:29 Temperature 97.6 F Pulse Rate Pulse Rate [Right Radial] 81 Respiratory Rate 19 19 19 Blood Pressure Blood Pressure [Left Arm] 100/57 Blood Pressure [Right Arm] O2 Sat by Pulse Oximetry 100 Oxygen Delivery Method Room Air FIO2% 01/19/25 14:29 01/19/25 16:00 01/19/25 19:00 Temperature 98.4 F Pulse Rate Pulse Rate [Right Radial] 75 Respiratory Rate 19 16 Blood Pressure Blood Pressure [Left Arm] 99/53 Blood Pressure [Right Arm] O2 Sat by Pulse Oximetry 100 Oxygen Delivery Method Room Air Room Air FIO2% 21 01/19/25 20:00 01/19/25 22:00 01/19/25 23:00 Temperature 98.1 F Pulse Rate Pulse Rate [Right Radial] 70 Respiratory Rate 16 20 20 Blood Pressure Blood Pressure [Left Arm] 101/56 Blood Pressure [Right Arm] O2 Sat by Pulse Oximetry 93 L Oxygen Delivery Method Room Air FIO2% 01/19/25 23:40 01/20/25 04:00 01/20/25 06:22 Temperature 97.6 F 97.8 F Pulse Rate Pulse Rate [Right Radial] 71 67 Respiratory Rate 20 20 20 Blood Pressure Blood Pressure [Left Arm] 110/58 111/59 Blood Pressure [Right Arm] O2 Sat by Pulse Oximetry 95 95 Oxygen Delivery Method Room Air Room Air FIO2% 01/20/25 08:00 01/20/25 09:10 01/20/25 11:47 Temperature 97.6 F 97.6 F Pulse Rate Pulse Rate [Right Radial] 71 66 Respiratory Rate 18 18 Blood Pressure Blood Pressure [Left Arm] 131/58 91/54 Blood Pressure [Right Arm] O2 Sat by Pulse Oximetry 96 97 Oxygen Delivery Method Room Air Room Air Room Air FIO2% 01/20/25 16:00 01/20/25 16:56 01/20/25 17:56 Temperature 97.8 F Pulse Rate Pulse Rate [Right Radial] 68 Respiratory Rate 18 18 18 Blood Pressure Blood Pressure [Left Arm] 94/52 Blood Pressure [Right Arm] O2 Sat by Pulse Oximetry 95 Oxygen Delivery Method Room Air FIO2% 01/20/25 19:00 01/20/25 20:00 01/20/25 22:16 Temperature 98.3 F Pulse Rate Pulse Rate [Right Radial] 72 Respiratory Rate 20 18 Blood Pressure Blood Pressure [Left Arm] 115/57 Blood Pressure [Right Arm] O2 Sat by Pulse Oximetry 95 Oxygen Delivery Method Room Air Room Air FIO2% 01/20/25 23:16 01/21/25 00:00 01/21/25 04:00 Temperature 98.5 F 98.1 F Pulse Rate Pulse Rate [Right Radial] 75 75 Respiratory Rate 16 20 18 Blood Pressure Blood Pressure [Left Arm] Blood Pressure [Right Arm] 95/53 133/67 O2 Sat by Pulse Oximetry 95 95 Oxygen Delivery Method Room Air Room Air FIO2% 01/21/25 07:00 01/21/25 08:22 Temperature 98.1 F Pulse Rate Pulse Rate [Right Radial] 75 Respiratory Rate 19 Blood Pressure Blood Pressure [Left Arm] Blood Pressure [Right Arm] 143/75 O2 Sat by Pulse Oximetry 93 L Oxygen Delivery Method Room Air Room Air FIO2% Labs: Laboratory Last Values WBC 7.2 X10^3/uL (3.6-10.0) 01/21/25 05:21 RBC 4.35 X10^6/uL (3.5-5.4) 01/21/25 05:21 Hgb 11.5 g/dL (12.0-16.0) L 01/21/25 05:21 Hct 35.3 % (36.0-47.0) L 01/21/25 05:21 MCV 81.2 fL (80.0-100.0) 01/21/25 05:21 MCH 26.5 pg (27.0-34.0) L 01/21/25 05:21 MCHC 32.6 g/dL (33.0-35.0) L 01/21/25 05:21 RDW 17.5 % (11.6-16.5) H 01/21/25 05:21 Plt Count 393 X10^3/uL (150.0-450.0) 01/21/25 05:21 Plt Count Comment Adequate (ADEQUATE) 01/19/25 04:50 MPV 7.8 fL (7.4-11.0) 01/21/25 05:21 Neut % (Auto) 83.7 % (42.0-75.0) H 01/21/25 05:21 Lymph % (Auto) 11.3 % (21.0-51.0) L 01/21/25 05:21 [place] % (Auto) 4.8 % (0.0-13.0) 01/21/25 05:21 Eos % (Auto) 0.2 % (0.9-2.9) L 01/21/25 05:21 Baso % (Auto) 0 % (0.2-1.0) L 01/21/25 05:21 Neut # (Auto) 6.0 x10^3/uL (2.2-4.8) H 01/21/25 05:21 Lymph # (Auto) 0.8 X10^3/uL (1.3-2.9) L 01/21/25 05:21 [place] # (Auto) 0.3 x10^3/uL (0.3-0.8) 01/21/25 05:21 Eos # (Auto) 0.0 x10^3/uL (0.0-0.2) 01/21/25 05:21 Baso # (Auto) 0.0 X10^3/uL (0.0-0.1) 01/21/25 05:21 Absolute Nucleated RBC 0.0 /100WBC 01/21/25 05:21 Total Counted 100 01/19/25 04:50 Neutrophils % (Manual) 87 % (39-76) H 01/19/25 04:50 Band Neutrophils % 0 % (0-10) 01/18/25 15:16 Lymphocytes % (Manual) 9 % (13-43) L 01/19/25 04:50 Monocytes % (Manual) 4 % (4-9) 01/19/25 04:50 Eosinophils % (Manual) 0 % (0-6) 01/18/25 15:16 Basophils % (Manual) 0 % (0-1) 01/18/25 15:16 Plt Morphology Comment Normal (NORMAL) 01/19/25 04:50 RBC Morphology Abnormal (NORMAL) A 01/19/25 04:50 Hypochromasia Slight A 01/19/25 04:50 Anisocytosis Slight A 01/19/25 04:50 Microcytosis Slight A 01/18/25 15:16 Stomatocytes Slight A 01/18/25 15:16 Sodium 130 mmol/L (136-145) L 01/21/25 05:21 Corrected Sodium TNP 01/21/25 05:21 Potassium 4.1 mmol/L (3.5-5.1) 01/21/25 05:21 Chloride 100 mmol/L (98-107) 01/21/25 05:21 Carbon Dioxide 20.5 mmol/L (21-32) L 01/21/25 05:21 BUN 31 mg/dL (7-18) H 01/21/25 05:21 Creatinine 0.83 mg/dL (0.55-1.02) 01/21/25 05:21 Est GFR (MDRD) Af Amer > 60 (>60) 01/21/25 05:21 Est GFR (MDRD) Non-Af > 60 (>60) 01/21/25 05:21 Glucose 90 mg/dL (65-99) 01/21/25 05:21 Lactic Acid 2.2 mmol/L (0.4-2.0) H 01/18/25 21:45 Calcium 7.9 mg/dL (8.5-10.1) L 01/21/25 05:21 Corrected Calcium 9.6 mg/dL (8.5-10.1) 01/21/25 05:21 Magnesium 2.4 mg/dL (2.0-2.9) 01/20/25 05:42 Total Bilirubin 0.40 mg/dL (0.2-1.0) 01/21/25 05:21 AST 15 Units/L (15-37) 01/21/25 05:21 ALT 16 Units/L (12-78) 01/21/25 05:21 Alkaline Phosphatase 96 Units/L (46-116) 01/21/25 05:21 Ammonia < 10 umol/L (11-32) L 01/18/25 19:24 Creatine Kinase 68 Units/L (26-192) 01/19/25 04:50 Troponin I High Sens 6.3 ng/L (4.0-60.0) 01/19/25 04:50 Total Protein 5.0 g/dL (6.4-8.2) L 01/21/25 05:21 Albumin 1.9 g/dL (3.4-5.0) L 01/21/25 05:21 Globulin 3.1 g/dL (2.5-4.5) 01/21/25 05:21 Albumin/Globulin Ratio 0.6 Ratio (1.1-2.1) L 01/21/25 05:21 Specimen Type Clean catch urine 01/19/25 04:10 Urine Color Dark yellow (YELLOW) 01/19/25 04:10 Urine Appearance Cloudy (CLEAR) 01/19/25 04:10 Urine pH 5.0 (5.0 - 8.0) 01/19/25 04:10 Ur Specific [place] 1.015 (1.000-1.030) 01/19/25 04:10 Urine Protein 2+ (NEGATIVE) 01/19/25 04:10 Urine Glucose (UA) Negative (NEGATIVE) 01/19/25 04:10 Urine Ketones Negative (NEGATIVE) 01/19/25 04:10 Urine Blood 2+ (NEGATIVE) 01/19/25 04:10 Urine Nitrite Negative (NEGATIVE) 01/19/25 04:10 Urine Bilirubin Negative (NEGATIVE) 01/19/25 04:10 Urine Urobilinogen Normal (NORMAL) 01/19/25 04:10 Ur Leukocyte Esterase 2+ (NEGATIVE) 01/19/25 04:10 Urine RBC 10-20 /HPF (0-3) A 01/19/25 04:10 Urine WBC 20-30 /HPF (0-5) A 01/19/25 04:10 Ur Squamous Epith Cells Few /HPF (NEGATIVE) 01/19/25 04:10 Urine Bacteria 3+ /HPF (NEGATIVE) 01/19/25 04:10 Ur Culture Indicated? Yes/culture set up 01/19/25 04:10 Reason For Visit: HYPONATREMIA, DEHYDRATION, ELEVATED LACTIC ACID, Discharge Diagnosis All Active Problems (Updated 01/19/25 @ 09:58 by Sebastian Cartagena MD) Hypertension (Acute) Hyponatremia (Acute) Bloody diarrhea (Acute) Left lower quadrant pain (Acute) Dehydration (Acute) Hypokalemia (Acute) Gastritis (Acute) Vomiting (Acute) UTI (urinary tract infection) (Acute) Gastroenteritis (Acute) Volume depletion (Acute) Leukocytosis (Acute) Plan of Treatment: Continue with present treatment and follow up plan. Pt is to keep follow up appointment as instructed and take medications as ordered. Discharge Medications Discharge Medications: codeine Allergy (Verified 01/18/25 14:34) meperidine (From Demerol) Allergy (Verified 01/18/25 14:34) morphine Allergy (Verified 01/18/25 14:34) Penicillins Allergy (Verified 01/18/25 14:34) CONTINUE taking the following medications atenolol 25 mg tablet 25 mg PO QDAY 01/18/25 [History] celecoxib 200 mg capsule 200 mg PO BID PRN 01/18/25 [History] duloxetine 30 mg capsule,delayed release 30 mg PO QDAY 01/18/25 [History] duloxetine 60 mg capsule,delayed release 60 mg PO QDAY 01/18/25 [History] fluticasone propionate 50 mcg/actuation nasal spray,suspension 1 spray intranasal DAILY 01/18/25 [History] olmesartan 40 mg tablet 40 mg PO QDAY 01/18/25 [History] oxybutynin chloride 5 mg tablet 10 mg PO BID 01/18/25 [History] silver sulfadiazine 1 % topical cream 1 applic topical QDAY 01/18/25 [History] New Prescriptions ciprofloxacin HCl 500 mg tablet 500 mg PO BID 7 days #14 tabs 01/20/25 [Rx] metronidazole 500 mg tablet 500 mg PO TID 7 days #21 tabs 01/20/25 [Rx] ondansetron 4 mg disintegrating tablet 4 mg PO Q8H PRN nausea and vomiting #20 tabs 01/21/25 [Rx] Discharge Disposition Discharge Disposition: To home Discharge Condition: Stable Discharge Plan Discharge Plan Hospital Course: Patient is a 78-year-old female with a past medical history of hypertension, depression, arthritis, presenting with abdominal pain and diarrhea. She reports that symptoms started last Thursday and has been progressively getting worse. She reports feeling weak. She denies fevers or chills. Labs/imaging: WBC 8.7, hemoglobin 11.8, platelets 427, sodium 125, potassium 3.8, creatinine 0.97, glucose 112, UA consistent with infection, urine/blood cultures pending. CT abdomen and pelvis revealed enteritis and colitis. Patient was admitted for gastroenteritis, dehydration, hyponatremia, acute cystitis. She was started on IV fluids normal saline 125 mL/h. IV antibiotics ciprofloxacin and Flagyl. Her labs were monitored daily and electrolytes replaced as needed. Her diet was advanced as tolerated. Her sodium improved with fluids. Stool culture was negative. Blood cultures were negative. Urine culture was contaminated. She was feeling better and tolerating p.o. intake. She was stable to be discharged home on p.o. antibiotics. She will follow-up with PCP as scheduled. Time spent for clinical assessment, reviewing labs/imaging, physical exam, decision making and documentation greater than 45 mins. Patient Disposition: 01 HOME, SELF-CARE Condition: Stable Health Concerns: Post Hospitalization: new medications and changes needed to prevent readmission or further decline. Pt educated and given instructions on all concerns. Plan of Treatment: Continue with present treatment and follow up plan. Pt is to keep follow up appointment as instructed and take medications as ordered. Prescription drug monitoring program results: PDMP reviewed and no concerns identified Prescriptions: New ciprofloxacin HCl 500 mg tablet 500 mg PO BID 7 Days Qty: 14 0RF metronidazole 500 mg tablet 500 mg PO TID 7 Days Qty: 21 0RF ondansetron 4 mg tablet,disintegrating 4 mg PO Q8H PRN (Reason: nausea and vomiting) Qty: 20 0RF benzonatate 100 mg Capsule 100 mg PO BID PRNQty: 25 0RF Continued cetirizine [Zyrtec] 10 mg Tablet 10 mg PO DAILY omeprazole 40 mg capsule,delayed release(DR/EC) 40 mg PO QDAY PRN celecoxib 200 mg capsule 200 mg PO BID PRN silver sulfadiazine 1 % cream 1 applic TOPICAL QDAY atenolol 25 mg tablet 25 mg PO QDAY oxybutynin chloride 5 mg tablet 10 mg PO BID fluticasone propionate 50 mcg/actuation spray,suspension 1 spray INTRANASAL DAILY Patient Comments: Inhale ONE (1) [place] in Each Nostril Every Day 60-DAY SUPPLY olmesartan 40 mg tablet 40 mg PO QDAY duloxetine 30 mg capsule,delayed release(DR/EC) 30 mg PO QDAY duloxetine 60 mg capsule,delayed release(DR/EC) 60 mg PO QDAY Follow ups/Referrals Follow ups/Referrals: SONNY VERDUGO [Primary Care Provider, Unknown] - 3 days Instructions Instructions: Hyponatremia, [id number], Not Eating Enough Protein, Fat, and Calories (Protein-Energy Malnutrition): What to Know, Urinary Tract Infection, Adult Stand Alone Forms: Excuse From Work or School, Find Help Web Site, Post Hospital Follow Up Care Print Language: BRAZILIAN
== END 2025-01-21 14:35 | disposition home or self-care (01) | DRG 392 ==
LOC: ER 14:33 → MED/SURG 22:55
PROVIDERS: ADMIT Family Medicine; ATTEND Family Medicine
DX: E83.51 Hypocalcemia; L89.611 Pressure ulcer of right heel, stage 1; R19.7 Diarrhea, unspecified; N30.00 Acute cystitis without hematuria; E87.1 Hypo-osmolality and hyponatremia; F41.8 Other specified anxiety disorders; F32.89 Other specified depressive episodes; R10.84 Generalized abdominal pain; I10 Essential (primary) hypertension; R79.89 Other specified abnormal findings of blood chemistry; Z60.8 Other problems related to social environment; E86.0 Dehydration; R06.02 Shortness of breath; I95.89 Other hypotension; R94.31 Abnormal electrocardiogram [ECG] [EKG]; D64.89 Other specified anemias; L89.629 Pressure ulcer of left heel, unspecified stage; K52.89 Other specified noninfective gastroenteritis and colitis; L89.301 Pressure ulcer of unspecified buttock, stage 1